=== PATIENT | female | born 1970 | race American Indian/Alaskan Native ===

== ENCOUNTER 2018-07-22 00:10 | Emergency (ER) | payer MEDICAID ==
[2018-07-22 09:29] VITALS: BP 140/76
--- NOTE | 2018-07-22 10:13 | Emergency Department Report ---
ED General Adult HPI - General Chief complaint: Arrhythmia/Palpitations Stated complaint: FAST HEART BEAT,HBP Time Seen by Provider: 07/22/18 10:05 Source: patient, RN notes reviewed Mode of arrival: Ambulatory Limitations: No Limitations - History of Present Illness Initial comments: This is a 47-year-old female who was not known to this provider previously. She endorses a past medical history of hypertension. She recently started taking HCTZ 25 mg daily 3 weeks ago. She presents to the ER with a complaint of intermittent sensation of rapid heartbeat over the past week. This is painless, and does not have exacerbating or relieving factors. She denies , denies oral contraceptive use, and denies DVT, pulmonary embolus risk factors. She reports getting enough sleep each night, and denies stimulant ingestion as well as caffeine ingestion. She denies headache, neck pain, chest pain, abdominal pain, shortness of breath. She makes no complaints of heaviness to her tongue to me. -: Gradual, week(s) (1) Severity scale (0 -10): 0 Consistency: intermittent Improves with: none Worsens with: none Associated Symptoms: denies other symptoms. denies: confusion, chest pain, cough, diaphoresis, fever/chills, headaches, loss of appetite, malaise, nausea/ vomiting, rash, seizure, shortness of breath, syncope, weakness - Related Data Allergies Allergy/AdvReac Type Severity Reaction Status Date / Time No Known Allergies Allergy Unverified 07/22/18 00:26 ED Review of Systems ROS: Stated complaint: FAST HEART BEAT,HBP Other details as noted in HPI Comment: All other systems reviewed and negative ED Past Medical Hx - Past Medical History Previous Medical History?: Yes Hx Hypertension: Yes - Surgical History Past Surgical History?: No - Social History Smoking Status: Never Smoker Substance Use Type: None ED Physical Exam - General Limitations: No Limitations General appearance: alert, in no apparent distress - Head Head exam: Present: atraumatic, normocephalic - Eye Eye exam: Present: normal appearance, PERRL, EOMI. Absent: nystagmus - ENT ENT exam: Present: normal exam, normal orophraynx, mucous membranes moist, normal external ear exam, other (the patient is speaking in full sentences. There is appropriate range of motion of the tongue. There is no tongue swelling. There is no stridor.) - Neck Neck exam: Present: normal inspection, full ROM. Absent: tenderness, meningismus - Respiratory Respiratory exam: Present: normal lung sounds bilaterally. Absent: respiratory distress - Cardiovascular Cardiovascular Exam: Present: regular rate, normal rhythm, normal heart sounds. Absent: bradycardia, tachycardia, irregular rhythm, systolic murmur, diastolic murmur, rubs, gallop - GI/Abdominal GI/Abdominal exam: Present: soft. Absent: distended, tenderness, guarding, rebound, rigid, pulsatile mass - Extremities Exam Extremities exam: Present: normal inspection, full ROM, normal capillary refill , other (2+ pulses noted in the bilateral upper, lower extremities. Compartments soft. No long bony tenderness. The pelvis is stable.). Absent: tenderness, pedal edema, joint swelling, calf tenderness - Back Exam Back exam: Present: normal inspection, full ROM. Absent: tenderness, CVA tenderness (R), paraspinal tenderness, vertebral tenderness - Neurological Exam Neurological exam: Present: alert, oriented X3, CN II-XII intact, normal gait, other (Extraocular movements intact. Tongue midline. No facial droop. Facial sensation intact to light touch in the V1, V2, V3 distribution bilaterally. 5 and 5 strength in 4 extremities.. Sensation is intact to light touch in 4 extremities.). Absent: motor sensory deficit - Psychiatric Psychiatric exam: Present: anxious - Skin Skin exam: Present: warm, dry, intact, normal color. Absent: rash ED Course Vital Signs 07/22/18 07/22/18 07/22/18 00:18 00:23 09:24 Temperature 98.6 F 98.6 F Pulse Rate 110 H 111 H 115 H Respiratory 18 16 Rate Blood Pressure 173/88 173/88 Blood Pressure [Right] O2 Sat by Pulse 99 99 99 Oximetry 07/22/18 09:28 Temperature 98.8 F Pulse Rate 75 Respiratory 18 Rate Blood Pressure Blood Pressure 140/76 [Right] O2 Sat by Pulse 100 Oximetry ED Medical Decision Making - Lab Data Result diagrams: 07/22/18 10:20 07/22/18 10:20 Vital Signs 07/22/18 07/22/18 07/22/18 00:18 00:23 09:24 Temperature 98.6 F 98.6 F Pulse Rate 110 H 111 H 115 H Respiratory 18 16 Rate Blood Pressure 173/88 173/88 Blood Pressure [Right] O2 Sat by Pulse 99 99 99 Oximetry 07/22/18 09:28 Temperature 98.8 F Pulse Rate 75 Respiratory 18 Rate Blood Pressure Blood Pressure 140/76 [Right] O2 Sat by Pulse 100 Oximetry Lab Results 07/22/18 07/22/18 07/22/18 Range/Units 10:20 10:20 10:28 WBC 3.8 L (4.5-11.0) K/mm3 RBC 4.57 (3.65-5.03) M/mm3 Hgb 11.3 (10.1-14.3) gm/dl Hct 35.5 (30.3-42.9) % MCV 78 L (79-97) fl MCH 25 L (28-32) pg MCHC 32 (30-34) % RDW 22.6 H (13.2-15.2) % Plt Count 270 (140-440) K/mm3 Sodium 137 (137-145) mmol/L Potassium 3.5 L (3.6-5.0) mmol/L Chloride 97.5 L (98-107) mmol/L Carbon Dioxide 29 (22-30) mmol/L Anion Gap 14 mmol/L BUN 8 (7-17) mg/dL Creatinine 0.8 (0.7-1.2) mg/dL Estimated GFR > 60 ml/min BUN/Creatinine Ratio 10 % Glucose 94 (65-100) mg/dL Calcium 8.8 (8.4-10.2) mg/dL Magnesium 2.00 (1.7-2.3) mg/dL TSH 1.090 (0.270-4.200) mlU/mL HCG, Quant (0-4) mIU/mL 07/22/18 Range/Units 10:28 WBC (4.5-11.0) K/mm3 RBC (3.65-5.03) M/mm3 Hgb (10.1-14.3) gm/dl Hct (30.3-42.9) % MCV (79-97) fl MCH (28-32) pg MCHC (30-34) % RDW (13.2-15.2) % Plt Count (140-440) K/mm3 Sodium (137-145) mmol/L Potassium (3.6-5.0) mmol/L Chloride (98-107) mmol/L Carbon Dioxide (22-30) mmol/L Anion Gap mmol/L BUN (7-17) mg/dL Creatinine (0.7-1.2) mg/dL Estimated GFR ml/min BUN/Creatinine Ratio % Glucose (65-100) mg/dL Calcium (8.4-10.2) mg/dL Magnesium (1.7-2.3) mg/dL TSH (0.270-4.200) mlU/mL HCG, Quant < 2 (0-4) mIU/mL - EKG Data -: EKG Interpreted by Me - EKG Data When compared to previous EKG there are: previous EKG unavailable 07/22/18 11:18 Sinus, 89 bpm, normal axis, normal intervals, borderline atrial enlargement, no prior for comparison, not a STEMI - Medical Decision Making Differential diagnosis, including but not limited to: Thyroid derangement, electrolyte derangement, intermittent paroxysmal tachycardia, anemia, anxiety Assessment and plan: 47-year-old female who endorses intermittent sensation of rapid heartbeat. She is initially tachycardic and hypertensive, and this improved on its own without intervention. Her physical exam is unremarkable, and her tongue exam is also unremarkable. Her laboratory studies were unremarkable for any emergent abnormality, incidental leukopenia is noted, and she can follow up with a primary care doctor for this. Based on the history and physical and the objective information, there does not appear to be an emergent medical condition at this time, the patient is medically suitable to follow up with outpatient primary care doctor. Critical care attestation.: If time is entered above; I have spent that time in minutes in the direct care of this critically ill patient, excluding procedure time. ED Disposition Clinical Impression: History of palpitations Disposition: DC-01 TO HOME OR SELFCARE Is pt being admited?: No Does the pt Need Aspirin: No Condition: Good Additional Instructions: Continue current outpatient medications. Follow up with her primary care doctor or director of alumni relations for sensation of rapid heart beat within the next 2-3 weeks. Avoid consumption of stimulants and caffeinated beverages. Return to the ER right away with new pain, worsened pain, migration of pain, projectile vomiting, change in mental status, confusion, inability to tolerate liquid feeds. Laboratory studies were essentially unremarkable with the exception of a minimally depressed white blood cell count, which is most likely not medically relevant. This should be followed up by her primary care doctor within the recommended timeframe. [facility]Other[facility] - 3-5 Days [facility] [Provider Group] - 3-5 Days [facility] [Provider Group] - 3-5 Days Forms: Work/School Release Form(ED)
[2018-07-22 10:42] LABS: Hematocrit 35.5 % (30.3-42.9); Hemoglobin 11.3 gm/dl (10.1-14.3); Mean Corpuscular HGB Conc 32 % (30-34); Mean Corpuscular Volume 78 fl (79-97); Platelet Count 270 K/mm3 (140-440); Red Blood Count 4.57 M/mm3 (3.65-5.03)
[2018-07-22 10:47] LABS: Mean Corpuscular Hemoglobin 25 pg (28-32); Red Cell Distribution Width 22.6 % (13.2-15.2)
[2018-07-22 11:00] LABS: BUN/Creatinine Ratio 10; Blood Urea Nitrogen 8 mg/dL (7-17); Calcium 8.8 mg/dL (8.4-10.2); Hemolysis Index 4
== END 2018-07-22 11:39 | disposition home or self-care (01) ==
LOC: ED 00:10
DX: R00.2 Palpitations (principal); I10 Essential (primary) hypertension
CPT/HCPCS: 36415; 80048; 83735; 84443; 84702; 85027; 93005; 93010

== ENCOUNTER 2019-08-17 03:47 | Inpatient (IN) | payer MEDICAID ==
[2019-08-17] MEDS ORDERED: ACETAMINOPHEN 500 MG TAB PO STA (03:54)
[2019-08-17] MEDS ORDERED: SODIUM CHLORIDE 0.9% 500 ML 500 ML IV ONE (03:54)
[2019-08-17 04:31] LABS: INR 0.99 (0.87-1.13)
[2019-08-17 04:38] LABS: Albumin 3.7 g/dL (3.9-5); Calcium 7.7 mg/dL (8.4-10.2)
--- NOTE | 2019-08-17 04:43 | XRay Report ---
CHEST 1 VIEW INDICATION / CLINICAL INFORMATION: possible Sepsis. COMPARISON: None available. FINDINGS: SUPPORT DEVICES: None. HEART / MEDIASTINUM: No significant abnormality. LUNGS / PLEURA: No significant pulmonary or pleural abnormality. No pneumothorax. ADDITIONAL FINDINGS: No significant additional findings. IMPRESSION: 1. No acute findings. Signer Name: Adelaida Sánchez MD Signed: 08/17/2019 4:38 AM Workstation Name: [id number] [id number]
[2019-08-17 05:13] LABS: Hematocrit 34.4 % (30.3-42.9); Hemoglobin 11.1 gm/dl (10.1-14.3); Mean Corpuscular HGB Conc 32 % (30-34); Mean Corpuscular Volume 68 fl (79-97); Red Blood Count 5.05 M/mm3 (3.65-5.03); Red Cell Distribution Width 22.1 % (13.2-15.2)
[2019-08-17 05:14] LABS: Platelet Count 84 K/mm3 (140-440)
[2019-08-17 05:43] LABS: Eosinophils % (Manual) 0 % (0.0-4.3); Total Cells Counted 100
[2019-08-17 05:44] LABS: Anisocytosis 1+; Hypochromasia 2+; Platelet Estimate Consistent w Auto
[2019-08-17] MEDS ORDERED: POTASSIUM CHLORIDE ER 20 MEQ TAB PO ONE (06:09)
[2019-08-17] MEDS ORDERED: SODIUM CHLORIDE 0.9% 1000 ML 1,000 ML IV ONE ×2 (06:19→09:30)
--- NOTE | 2019-08-17 06:20 | Emergency Department Report ---
ED General Adult HPI - General Chief complaint: Nausea/Vomiting/Diarrhea Stated complaint: FATIGUE, TIREDNESS, DIARRHEA,VUFFS, CHILLS Time Seen by Provider: 08/17/19 06:08 Source: patient, RN notes reviewed Mode of arrival: Ambulatory Limitations: No Limitations - History of Present Illness Initial comments: During the history and physical, I am chaperoned by supervisor vendor quality Maximilian Whalen This is a pleasant 48-year-old female. I evaluated this patient in the past. She reports that she typically goes to the [facility] Patient recently got back from [place] from a vacation. She presents to the ER with a complaint of body aches, nausea, vomiting and diarrhea. Symptoms present for the past 24 hours. Symptoms are improved with IV fluids, Tylenol, and antiemetic medication. She denies irritative, obstructive urinary symptoms. No sick contacts that she is aware of. She does not believe that she consumed raw or undercooked food, but is not sure.. -: Gradual Severity scale (0 -10): 0 Consistency: intermittent Improves with: medication, rest Worsens with: eating - Related Data Allergies Allergy/AdvReac Type Severity Reaction Status Date / Time No Known Allergies Allergy Unverified 07/22/18 00:26 ED Review of Systems ROS: Stated complaint: FATIGUE, TIREDNESS, DIARRHEA,VUFFS, CHILLS Other details as noted in HPI Constitutional: fever Eyes: denies: vision change ENT: denies: congestion Respiratory: denies: wheezing Cardiovascular: denies: syncope Gastrointestinal: nausea, vomiting, diarrhea. denies: abdominal pain Genitourinary: denies: urgency Musculoskeletal: arthralgia, myalgia Skin: denies: lesions Neurological: weakness ED Past Medical Hx - Past Medical History Previous Medical History?: Yes Hx Hypertension: Yes - Surgical History Past Surgical History?: No - Social History Smoking Status: Never Smoker Substance Use Type: None ED Physical Exam - General Limitations: No Limitations General appearance: alert, in no apparent distress - Head Head exam: Present: atraumatic, normocephalic - Eye Eye exam: Present: normal appearance, EOMI. Absent: nystagmus - ENT ENT exam: Present: normal exam, normal orophraynx, mucous membranes moist, norm al external ear exam - Neck Neck exam: Present: normal inspection, full ROM. Absent: tenderness, meningismus - Respiratory Respiratory exam: Present: normal lung sounds bilaterally. Absent: respiratory distress - Cardiovascular Cardiovascular Exam: Present: normal rhythm, tachycardia, normal heart sounds. Absent: systolic murmur, diastolic murmur, rubs, gallop - GI/Abdominal GI/Abdominal exam: Present: soft. Absent: distended, tenderness, guarding, rebound, rigid, pulsatile mass - Extremities Exam Extremities exam: Present: normal inspection, full ROM, other (2+ pulses noted in the bilateral upper, lower extremities. Compartments soft. No long bony tenderness. The pelvis is stable.). Absent: pedal edema, joint swelling, calf tenderness - Back Exam Back exam: Present: normal inspection, full ROM. Absent: tenderness, CVA tenderness (R), CVA tenderness (L), paraspinal tenderness, vertebral tenderness - Neurological Exam Neurological exam: Present: alert, other (Extraocular movements intact. Tongue midline. No facial droop. Facial sensation intact to light touch in the V1, V2, V3 distribution bilaterally. 5 and 5 strength in 4 extremities.. Sensation is intact to light touch in 4 extremities.). Absent: motor sensory deficit - Psychiatric Psychiatric exam: Present: normal affect, normal mood - Skin Skin exam: Present: warm, dry, intact, normal color. Absent: rash ED Course Vital Signs 08/17/19 08/17/19 08/17/19 03:49 04:13 04:28 Temperature 103.1 F H 100.2 F H Pulse Rate 108 H 100 H Respiratory 18 21 Rate Blood Pressure 120/68 Blood Pressure 117/68 [Left] O2 Sat by Pulse 98 99 98 Oximetry 08/17/19 08/17/19 08/17/19 04:31 05:00 05:30 Temperature Pulse Rate 103 H 96 H 96 H Respiratory 18 19 22 Rate Blood Pressure 117/68 107/53 108/52 Blood Pressure [Left] O2 Sat by Pulse 99 100 97 Oximetry 08/17/19 08/17/19 08/17/19 05:52 06:00 06:39 Temperature 100.1 F H Pulse Rate 95 H Respiratory 18 16 Rate Blood Pressure 129/49 129/49 Blood Pressure [Left] O2 Sat by Pulse 100 Oximetry 08/17/19 08/17/19 08/17/19 07:01 07:04 07:11 Temperature 98.8 F Pulse Rate 88 91 H Respiratory 15 15 Rate Blood Pressure 109/64 109/64 Blood Pressure [Left] O2 Sat by Pulse Oximetry 08/17/19 08/17/19 08/17/19 07:21 07:30 07:40 Temperature Pulse Rate 99 H 94 H 95 H Respiratory 22 19 15 Rate Blood Pressure 129/49 104/64 104/64 Blood Pressure [Left] O2 Sat by Pulse Oximetry 08/17/19 08/17/19 08/17/19 07:58 08:00 08:08 Temperature Pulse Rate 90 Respiratory 16 Rate Blood Pressure 100/74 110/73 Blood Pressure 110/73 [Left] O2 Sat by Pulse 96 99 100 Oximetry 08/17/19 08/17/19 08/17/19 08:11 08:21 08:31 Temperature Pulse Rate Respiratory Rate Blood Pressure 110/73 110/73 110/73 Blood Pressure [Left] O2 Sat by Pulse 97 98 97 Oximetry 08/17/19 08:41 Temperature Pulse Rate Respiratory Rate Blood Pressure 110/73 Blood Pressure [Left] O2 Sat by Pulse 100 Oximetry ED Medical Decision Making - Lab Data Result diagrams: 08/18/19 05:10 08/18/19 05:10 Vital Signs 08/17/19 08/17/19 08/17/19 03:49 04:13 04:28 Temperature 103.1 F H 100.2 F H Pulse Rate 108 H 100 H Respiratory 18 21 Rate Blood Pressure 120/68 Blood Pressure 117/68 [Left] O2 Sat by Pulse 98 99 98 Oximetry 08/17/19 08/17/19 08/17/19 04:31 05:00 05:30 Temperature Pulse Rate 103 H 96 H 96 H Respiratory 18 19 22 Rate Blood Pressure 117/68 107/53 108/52 Blood Pressure [Left] O2 Sat by Pulse 99 100 97 Oximetry 08/17/19 05:52 Temperature 100.1 F H Pulse Rate Respiratory Rate Blood Pressure Blood Pressure [Left] O2 Sat by Pulse Oximetry Lab Results 08/17/19 08/17/19 08/17/19 Range/Units 03:57 03:57 03:57 WBC 2.1 L (4.5-11.0) K/mm3 RBC 5.05 H (3.65-5.03) M/mm3 Hgb 11.1 (10.1-14.3) gm/dl Hct 34.4 (30.3-42.9) % MCV 68 L (79-97) fl MCH 22 L (28-32) pg MCHC 32 (30-34) % RDW 22.1 H (13.2-15.2) % Plt Count 84 L (140-440) K/mm3 Lymph % (Auto) Floor Tiling Professional Bremer % (Auto) Floor Tiling Professional Eos % (Auto) Floor Tiling Professional Baso % (Auto) Floor Tiling Professional Lymph # Floor Tiling Professional Bremer # Floor Tiling Professional Eos # Floor Tiling Professional Baso # Floor Tiling Professional Add Manual Diff Complete Total Counted 100 Seg Neutrophils % Floor Tiling Professional Seg Neuts % (Manual) 63.0 (40.0-70.0) % Band Neutrophils % 1.0 % Lymphocytes % (Manual) 30.0 (13.4-35.0) % Reactive Lymphs % (Man) 3.0 % Monocytes % (Manual) 2.0 (0.0-7.3) % Eosinophils % (Manual) 0 (0.0-4.3) % Basophils % (Manual) 1.0 (0.0-1.8) % Metamyelocytes % 0 % Myelocytes % 0 % Promyelocytes % 0 % Blast Cells % 0 % Nucleated RBC % Not Reportable Seg Neutrophils # Floor Tiling Professional Seg Neutrophils # Man 1.3 L (1.8-7.7) K/mm3 Band Neutrophils # 0.0 K/mm3 Lymphocytes # (Manual) 0.6 L (1.2-5.4) K/mm3 Abs React Lymphs (Man) 0.1 K/mm3 Monocytes # (Manual) 0.0 (0.0-0.8) K/mm3 Eosinophils # (Manual) 0.0 (0.0-0.4) K/mm3 Basophils # (Manual) 0.0 (0.0-0.1) K/mm3 Metamyelocytes # 0.0 K/mm3 Myelocytes # 0.0 K/mm3 Promyelocytes # 0.0 K/mm3 Blast Cells # 0.0 K/mm3 WBC Morphology Not Reportable Hypersegmented Neuts Not Reportable Hyposegmented Neuts Not Reportable Hypogranular Neuts Not Reportable Smudge Cells Not Reportable Toxic Granulation Not Reportable Toxic Vacuolation Not Reportable Dohle Bodies Not Reportable Pelger-Huet Anomaly Not Reportable Julia Rods Not Reportable Platelet Estimate Consistent w auto Clumped Platelets Not Reportable Plt Clumps, EDTA Not Reportable Large Platelets Not Reportable Giant Platelets Not Reportable Platelet Satelliting Not Reportable Plt Morphology Comment Not Reportable RBC Morphology Not Reportable Dimorphic RBCs Not Reportable Polychromasia Not Reportable Hypochromasia 2+ Poikilocytosis Not Reportable Anisocytosis 1+ Microcytosis 1+ Macrocytosis Not Reportable Spherocytes Not Reportable Pappenheimer Bodies Not Reportable Sickle Cells Not Reportable Target Cells Not Reportable Tear Drop Cells Not Reportable Ovalocytes Not Reportable Helmet Cells Not Reportable Rodriguez-[place] Bodies Not Reportable Freeman Rings Not Reportable Lafe Cells Not Reportable Bite Cells Not Reportable Crenated Cell Not Reportable Elliptocytes Not Reportable Acanthocytes (Spur) Not Reportable Rouleaux Not Reportable Hemoglobin C Crystals Not Reportable Schistocytes Not Reportable Malaria parasites Not Reportable Morro Bodies Not Reportable Hem Pathologist Commnt No PT 12.8 (12.2-14.9) Sec. INR 0.99 (0.87-1.13) VBG pH (7.320-7.420) Sodium 133 L (137-145) mmol/L Potassium 3.3 L (3.6-5.0) mmol/L Chloride 93.0 L (98-107) mmol/L Carbon Dioxide 27 (22-30) mmol/L Anion Gap 16 mmol/L BUN 11 (7-17) mg/dL Creatinine 1.2 (0.7-1.2) mg/dL Estimated GFR 58 ml/min BUN/Creatinine Ratio 9 % Glucose 146 H (65-100) mg/dL Lactic Acid (0.7-2.0) mmol/L Calcium 7.7 L (8.4-10.2) mg/dL Total Bilirubin 0.40 (0.1-1.2) mg/dL AST 95 H (5-40) units/L ALT 47 (7-56) units/L Alkaline Phosphatase 41 (35-129) units/L Total Protein 7.7 (6.3-8.2) g/dL Albumin 3.7 L (3.9-5) g/dL Albumin/Globulin Ratio 0.9 % Influenza A (Rapid) (Negative) Influenza B (Rapid) (Negative) 08/17/19 08/17/19 08/17/19 Range/Units 03:57 03:57 05:00 WBC (4.5-11.0) K/mm3 RBC (3.65-5.03) M/mm3 Hgb (10.1-14.3) gm/dl Hct (30.3-42.9) % MCV (79-97) fl MCH (28-32) pg MCHC (30-34) % RDW (13.2-15.2) % Plt Count (140-440) K/mm3 Lymph % (Auto) Bremer % (Auto) Eos % (Auto) Baso % (Auto) Lymph # Bremer # Eos # Baso # Add Manual Diff Total Counted Seg Neutrophils % Seg Neuts % (Manual) (40.0-70.0) % Band Neutrophils % % Lymphocytes % (Manual) (13.4-35.0) % Reactive Lymphs % (Man) % Monocytes % (Manual) (0.0-7.3) % Eosinophils % (Manual) (0.0-4.3) % Basophils % (Manual) (0.0-1.8) % Metamyelocytes % % Myelocytes % % Promyelocytes % % Blast Cells % % Nucleated RBC % Seg Neutrophils # Seg Neutrophils # Man (1.8-7.7) K/mm3 Band Neutrophils # K/mm3 Lymphocytes # (Manual) (1.2-5.4) K/mm3 Abs React Lymphs (Man) K/mm3 Monocytes # (Manual) (0.0-0.8) K/mm3 Eosinophils # (Manual) (0.0-0.4) K/mm3 Basophils # (Manual) (0.0-0.1) K/mm3 Metamyelocytes # K/mm3 Myelocytes # K/mm3 Promyelocytes # K/mm3 Blast Cells # K/mm3 WBC Morphology Hypersegmented Neuts Hyposegmented Neuts Hypogranular Neuts Smudge Cells Toxic Granulation Toxic Vacuolation Dohle Bodies Pelger-Huet Anomaly Julia Rods Platelet Estimate Clumped Platelets Plt Clumps, EDTA Large Platelets Giant Platelets Platelet Satelliting Plt Morphology Comment RBC Morphology Dimorphic RBCs Polychromasia Hypochromasia Poikilocytosis Anisocytosis Microcytosis Macrocytosis Spherocytes Pappenheimer Bodies Sickle Cells Target Cells Tear Drop Cells Ovalocytes Helmet Cells Rodriguez-[place] Bodies Freeman Rings Lafe Cells Bite Cells Crenated Cell Elliptocytes Acanthocytes (Spur) Rouleaux Hemoglobin C Crystals Schistocytes Malaria parasites Morro Bodies Hem Pathologist Commnt PT (12.2-14.9) Sec. INR (0.87-1.13) VBG pH 7.405 (7.320-7.420) Sodium (137-145) mmol/L Potassium (3.6-5.0) mmol/L Chloride (98-107) mmol/L Carbon Dioxide (22-30) mmol/L Anion Gap mmol/L BUN (7-17) mg/dL Creatinine (0.7-1.2) mg/dL Estimated GFR ml/min BUN/Creatinine Ratio % Glucose (65-100) mg/dL Lactic Acid 1.50 (0.7-2.0) mmol/L Calcium (8.4-10.2) mg/dL Total Bilirubin (0.1-1.2) mg/dL AST (5-40) units/L ALT (7-56) units/L Alkaline Phosphatase (35-129) units/L Total Protein (6.3-8.2) g/dL Albumin (3.9-5) g/dL Albumin/Globulin Ratio % Influenza A (Rapid) Negative (Negative) Influenza B (Rapid) Negative (Negative) - EKG Data -: EKG Interpreted by Md EKG shows normal: sinus rhythm Rate: normal - EKG Data 08/17/19 07:56 The EKG shows a sinus rhythm, 47 bpm, normal axis, QTC is within normal limits, there is poor R-wave progression, there is no endorsement of chest pain, the EKG is abnormal, the EKG is not consistent with ST elevation myocardial infarction. - Radiology Data Radiology results: report reviewed, image reviewed Print Report Referring Physician: ED DOC Patient Name: DOROTHEA GARCIA Date of : 1970 Sex: Female Report Date: 2019-08-17 Report Status: Finalized Findings [facility] [address] [place] [address] XRay Report Signed Patient: DOROTHEA GARCIA MR#: [id number] : 1970 Acct:[id number] Age/Sex: 48 / F ADM Date: 08/17/19 Loc: ED Attending Dr: Ordering Physician: ED MD VERITO Date of Service: 08/17/19 Procedure(s): XR chest 1V ap Accession Number(s): [id number] cc: ED DOCMD Fluoro Time In Minutes: CHEST 1 VIEW INDICATION / CLINICAL INFORMATION: possible Sepsis. COMPARISON: None available. FINDINGS: SUPPORT DEVICES: None. HEART / MEDIASTINUM: No significant abnormality. LUNGS / PLEURA: No significant pulmonary or pleural abnormality. No pneumothorax. ADDITIONAL FINDINGS: No significant additional findings. IMPRESSION: 1. No acute findings. Signer Name: Adelaida Sánchez MD Signed: 08/17/2019 4:38 AM Workstation Name: [id number] Transcribed By: [facility] Dictated By: Adelaida Sánchez MD Electronically Authenticated By: Adelaida Sánchez MD Signed Date/Time: 08/17/19 0438 - Medical Decision Making Differential diagnosis, including but not limited to: Viral syndrome, bacteremia, viremia, traveler's diarrhea, dehydration Assessment and plan: 48-year-old female with systemic inflammatory response syndrome, manifested by leukopenia, (this is chronic), tachycardia, and fever. The patient is quite well-appearing, does not appear to be in any acute distress. Her abdomen is soft and benign. She is found to have rhabdomyolysis, and systemic inflammatory response syndrome. We've recommended admission to the medical service for supportive care, and IV fluids. Discussed this with the patient, who verbalizes understanding, and is amenable to this plan of care. Hypokalemia is addressed. Azithromycin ordered. IV fluids ordered. Hospital physician, Dr. Seble Michele to admit Critical care attestation.: If time is entered above; I have spent that time in minutes in the direct care of this critically ill patient, excluding procedure time. ED Disposition Clinical Impression: Rhabdomyolysis, Acute febrile illness, SIRS (systemic inflammatory response syndrome) Disposition: OP ADMIT IP TO THIS HOSP Is pt being admited?: Yes Condition: Stable
[2019-08-17 07:04] LABS: HCG Qualitative,Urine Negative (Negative)
[2019-08-17 07:06] LABS: Bacteria,Urine 1+ /HPF (Negative); Bilirubin,Urine NEG (Negative); Blood,Urine NEG (Negative); Color,Urine Yellow (Yellow); Protein,Urine <15 mg/dL mg/dL (Negative); Urobilinogen,Urine < 2.0 mg/dL (<2.0)
[2019-08-17] MEDS ORDERED: SODIUM CHLORIDE 0.9% 1000 ML 2,000 ML IV ONE (07:43)
[2019-08-17] MEDS ORDERED: AZITHROMYCIN 250 MG TAB PO ONE (07:49)
[2019-08-17] MEDS ORDERED: ALBUTEROL 2.5 MG/3 ML NEBU IH PRN (07:53)
[2019-08-17] MEDS ORDERED: ACETAMINOPHEN 325 MG TAB PO PRN (07:53)
[2019-08-17] MEDS ORDERED: ONDANSETRON 4 MG/2 ML INJ IV PRN (07:53)
--- NOTE | 2019-08-17 07:59 | History and Physical Report ---
History of Present Illness Date of examination: 08/17/19 Date of admission: 08/17/19 Chief complaint: Diarrhea and Generalized weakness With Fever. History of present illness: Patient is a 48 Year old female with pmh of Hypternsion, Leukopenia who presents to the Ed with complaints of Body aches, nausea, vomiting and diarrhea. Per patient the Diarrhe has been persistent with > 5 times daily, she reports that this started 3 days into her Trip to [facility], no other fellow travelers where affected but she was quick to add that they are accustomed to [place]. She de nies irritative, Abdominal pain, obstructive urinary symptoms. No sick contacts that she is aware of. She does not believe that she consumed raw or undercooked food, but is not sure * She is found to have rhabdomyolysis, and systemic inflammatory response syndrome And Tachycardia. * She received 2.5 Liters of fluid in the ED Past History Past Medical History: hypertension. denies: COPD, diabetes, HIV/AIDS, hyperlipidemia Past Surgical History: denies: No surgical history Social history: lives with family, full code. denies: smoking, alcohol abuse, prescription drug abuse, IV drug use, AND/DNR-allow natural Family history: no significant family history Medications and Allergies Allergies Allergy/AdvReac Type Severity Reaction Status Date / Time No Known Allergies Allergy Unverified 07/22/18 00:26 Active Meds: Active Medications Acetaminophen (Tylenol) 650 mg PO Q4H PRN PRN Reason: Pain MILD(1-3)/Fever >100.5/PECK Albuterol (Proventil) 2.5 mg IH Q3HRT PRN PRN Reason: Shortness Of Breath Enoxaparin Sodium (Lovenox) 30 mg SUB-Q QDAY SAVITA Sodium Chloride (Nacl 0.9% 1000 Ml) 1,000 mls @ 150 mls/hr IV DIRECT SAVITA Ondansetron HCl (Zofran) 4 mg IV Q8H PRN PRN Reason: Nausea And Vomiting Sodium Chloride (Sodium Chloride Flush Syringe 10 Ml) 10 ml IV BID SAVITA Sodium Chloride (Sodium Chloride Flush Syringe 10 Ml) 10 ml IV PRN PRN PRN Reason: LINE FLUSH Review of Systems Constitutional: fever, chills, fatigue, weakness, lethargy, no sweats, no night sweats, no malaise Cardiovascular: lightheadedness, no chest pain, no orthopnea, no palpitations, no syncope, no shortness of breath, no dyspnea on exertion, no paroxysmal nocturnal dyspnea, no claudication Respiratory: cough, no cough with sputum, no excessive sputum, no hemoptysis, no shortness of breath, no dyspnea on exertion, no congestion, no wheezing, no pleurisy, no pain Gastrointestinal: no abdominal pain, no nausea, no diarrhea, no constipation, no change in bowel habits, no melena, no hematochezia, no heartburn, no indigestion, no dyspepsia/bloating Genitourinary Female: no urgency, no stress incontinence, no post void dribbling, no incomplete emptying, no urge incontinence, no abnormal vaginal bleeding, no genital sores, no hot flashes, no prolapse symptoms Integumentary: no deferred, no pruritis, no sores, no bullae, no darkening of skin, no depigmentation, no acne, no brittle nails, no striae Neurological: no transient paralysis, no weakness, no parathesias, no numbness, no tingling, no seizures, no headaches, no convulsions, no aphasia, no change in speech, no change in mentation, no motor disturbance, no sensory deficit, no loss of vision, no hearing difficulties Psychiatric: no anxiety, no change in sleep habits, no insomnia, no hypersomnia, no depression, no hopelessness, no anhedonia, no difficulties concentrating, no confusion Endocrine: no heat intolerance, no excessive thirst, no polyuria, no nocturia, no weight change, no proptosis, no deepening of the voice, no palpatations, no low blood sugars Hematologic/Lymphatic: no lymphadenopathy, no lymphedema, no thrombophilia Allergic/Immunologic: no urticaria, no wheezing, no gluten intolerance Exam - Constitutional Vitals: Temp Pulse Resp BP Pulse Ox 98.8 F 95 H 16 129/49 100 08/17/19 07:04 08/17/19 06:39 08/17/19 06:39 08/17/19 06:39 08/17/19 06:00 General appearance: Present: mild distress - EENT Eyes: Present: PERRL, EOM intact ENT: hearing intact, clear oral mucosa, dentition normal - Neck Neck: Present: supple, normal ROM - Respiratory Respiratory effort: normal Respiratory: bilateral: CTA - Cardiovascular Rhythm: regular Heart Sounds: Present: S1 & S2. Absent: systolic murmur, diastolic murmur - Extremities Extremities: no ischemia, pulses intact, pulses symmetrical, No edema, normal temperature, normal color, Full ROM Peripheral Pulses: within normal limits - Abdominal General gastrointestinal: Present: soft, non-tender, non-distended, normal bowel sounds - Integumentary Integumentary: Present: clear, warm, dry, normal turgor. Absent: erythema, jaundice, rash, clammy, pale, decreased turgor - Musculoskeletal Musculoskeletal: strength equal bilaterally - Psychiatric Psychiatric: appropriate mood/affect, intact judgment & insight, memory intact, cooperative - Neurologic Neurologic: CNII-XII intact, moves all extremities - Allied Health Allied health notes reviewed: nursing Results - Labs CBC & Chem 7: 08/17/19 03:57 08/17/19 03:57 Labs: Laboratory Last Values WBC 2.1 K/mm3 (4.5-11.0) L 08/17/19 03:57 RBC 5.05 M/mm3 (3.65-5.03) H 08/17/19 03:57 Hgb 11.1 gm/dl (10.1-14.3) 08/17/19 03:57 Hct 34.4 % (30.3-42.9) 08/17/19 03:57 MCV 68 fl (79-97) L 08/17/19 03:57 MCH 22 pg (28-32) L 08/17/19 03:57 MCHC 32 % (30-34) 08/17/19 03:57 RDW 22.1 % (13.2-15.2) H 08/17/19 03:57 Plt Count 84 K/mm3 (140-440) L 08/17/19 03:57 Lymph % (Auto) Safety Professional 08/17/19 03:57 [place] % (Auto) Safety Professional 08/17/19 03:57 Eos % (Auto) Safety Professional 08/17/19 03:57 Baso % (Auto) Safety Professional 08/17/19 03:57 Lymph # Safety Professional 08/17/19 03:57 [place] # Safety Professional 08/17/19 03:57 Eos # Safety Professional 08/17/19 03:57 Baso # Safety Professional 08/17/19 03:57 Add Manual Diff Complete 08/17/19 03:57 Total Counted 100 08/17/19 03:57 Seg Neutrophils % Safety Professional 08/17/19 03:57 Seg Neuts % (Manual) 63.0 % (40.0-70.0) 08/17/19 03:57 Band Neutrophils % 1.0 % 08/17/19 03:57 Lymphocytes % (Manual) 30.0 % (13.4-35.0) 08/17/19 03:57 Reactive Lymphs % (Man) 3.0 % 08/17/19 03:57 Monocytes % (Manual) 2.0 % (0.0-7.3) 08/17/19 03:57 Eosinophils % (Manual) 0 % (0.0-4.3) 08/17/19 03:57 Basophils % (Manual) 1.0 % (0.0-1.8) 08/17/19 03:57 Metamyelocytes % 0 % 08/17/19 03:57 Myelocytes % 0 % 08/17/19 03:57 Promyelocytes % 0 % 08/17/19 03:57 Blast Cells % 0 % 08/17/19 03:57 Nucleated RBC % Not Reportable 08/17/19 03:57 Seg Neutrophils # Safety Professional 08/17/19 03:57 Seg Neutrophils # Man 1.3 K/mm3 (1.8-7.7) L 08/17/19 03:57 Band Neutrophils # 0.0 K/mm3 08/17/19 03:57 Lymphocytes # (Manual) 0.6 K/mm3 (1.2-5.4) L 08/17/19 03:57 Abs React Lymphs (Man) 0.1 K/mm3 08/17/19 03:57 Monocytes # (Manual) 0.0 K/mm3 (0.0-0.8) 08/17/19 03:57 Eosinophils # (Manual) 0.0 K/mm3 (0.0-0.4) 08/17/19 03:57 Basophils # (Manual) 0.0 K/mm3 (0.0-0.1) 08/17/19 03:57 Metamyelocytes # 0.0 K/mm3 08/17/19 03:57 Myelocytes # 0.0 K/mm3 08/17/19 03:57 Promyelocytes # 0.0 K/mm3 08/17/19 03:57 Blast Cells # 0.0 K/mm3 08/17/19 03:57 WBC Morphology Not Reportable 08/17/19 03:57 Hypersegmented Neuts Not Reportable 08/17/19 03:57 Hyposegmented Neuts Not Reportable 08/17/19 03:57 Hypogranular Neuts Not Reportable 08/17/19 03:57 Smudge Cells Not Reportable 08/17/19 03:57 Toxic Granulation Not Reportable 08/17/19 03:57 Toxic Vacuolation Not Reportable 08/17/19 03:57 Dohle Bodies Not Reportable 08/17/19 03:57 Pelger-Huet Anomaly Not Reportable 08/17/19 03:57 Julia Rods Not Reportable 08/17/19 03:57 Platelet Estimate Consistent w auto 08/17/19 03:57 Clumped Platelets Not Reportable 08/17/19 03:57 Plt Clumps, EDTA Not Reportable 08/17/19 03:57 Large Platelets Not Reportable 08/17/19 03:57 Giant Platelets Not Reportable 08/17/19 03:57 Platelet Satelliting Not Reportable 08/17/19 03:57 Plt Morphology Comment Not Reportable 08/17/19 03:57 RBC Morphology Not Reportable 08/17/19 03:57 Dimorphic RBCs Not Reportable 08/17/19 03:57 Polychromasia Not Reportable 08/17/19 03:57 Hypochromasia 2+ 08/17/19 03:57 Poikilocytosis Not Reportable 08/17/19 03:57 Anisocytosis 1+ 08/17/19 03:57 Microcytosis 1+ 08/17/19 03:57 Macrocytosis Not Reportable 08/17/19 03:57 Spherocytes Not Reportable 08/17/19 03:57 Pappenheimer Bodies Not Reportable 08/17/19 03:57 Sickle Cells Not Reportable 08/17/19 03:57 Target Cells Not Reportable 08/17/19 03:57 Tear Drop Cells Not Reportable 08/17/19 03:57 Ovalocytes Not Reportable 08/17/19 03:57 Helmet Cells Not Reportable 08/17/19 03:57 [place] Bodies Not Reportable 08/17/19 03:57 [place] Rings Not Reportable 08/17/19 03:57 Embarrass Cells Not Reportable 08/17/19 03:57 Bite Cells Not Reportable 08/17/19 03:57 Crenated Cell Not Reportable 08/17/19 03:57 Elliptocytes Not Reportable 08/17/19 03:57 Acanthocytes (Spur) Not Reportable 08/17/19 03:57 Rouleaux Not Reportable 08/17/19 03:57 Hemoglobin C Crystals Not Reportable 08/17/19 03:57 Schistocytes Not Reportable 08/17/19 03:57 Malaria parasites Not Reportable 08/17/19 03:57 Morro Bodies Not Reportable 08/17/19 03:57 Hem Pathologist Commnt No 08/17/19 03:57 PT 12.8 Sec. (12.2-14.9) 08/17/19 03:57 INR 0.99 (0.87-1.13) 08/17/19 03:57 VBG pH 7.405 (7.320-7.420) 08/17/19 03:57 Sodium 133 mmol/L (137-145) L 08/17/19 03:57 Potassium 3.3 mmol/L (3.6-5.0) L 08/17/19 03:57 Chloride 93.0 mmol/L (98-107) L 08/17/19 03:57 Carbon Dioxide 27 mmol/L (22-30) 08/17/19 03:57 Anion Gap 16 mmol/L 08/17/19 03:57 BUN 11 mg/dL (7-17) 08/17/19 03:57 Creatinine 1.2 mg/dL (0.7-1.2) 08/17/19 03:57 Estimated GFR 58 ml/min 08/17/19 03:57 BUN/Creatinine Ratio 9 % 08/17/19 03:57 Glucose 146 mg/dL (65-100) H 08/17/19 03:57 Lactic Acid 1.00 mmol/L (0.7-2.0) 08/17/19 06:21 Calcium 7.7 mg/dL (8.4-10.2) L 08/17/19 03:57 Magnesium 1.70 mg/dL (1.7-2.3) 08/17/19 03:57 Total Bilirubin 0.40 mg/dL (0.1-1.2) 08/17/19 03:57 AST 95 units/L (5-40) H 08/17/19 03:57 ALT 47 units/L (7-56) 08/17/19 03:57 Alkaline Phosphatase 41 units/L (35-129) 08/17/19 03:57 Total Creatine Kinase 4050 units/L (30-135) H 08/17/19 03:57 Total Protein 7.7 g/dL (6.3-8.2) 08/17/19 03:57 Albumin 3.7 g/dL (3.9-5) L 08/17/19 03:57 Albumin/Globulin Ratio 0.9 % 08/17/19 03:57 Urine Bilirubin Neg (Negative) 08/17/19 06:30 Urine RBC (Auto) 3.0 /HPF (0.0-6.0) 08/17/19 06:30 U Epithel Cells (Auto) 1.0 /HPF (0-13.0) 08/17/19 06:30 Urine HCG, Qual Negative (Negative) 08/17/19 06:30 Influenza A (Rapid) Negative (Negative) 08/17/19 05:00 Influenza B (Rapid) Negative (Negative) 08/17/19 05:00 Assessment and Plan Assessment and plan: Patient is a 48 Year old female with pmh of Hypternsion, Leukopenia who presents to the Ed with complaints of Body aches, nausea, vomiting and diarrhea. Per patient the Diarrhe has been persistent with > 5 times daily, she reports that this started 3 days into her Trip to [facility], no other fellow travelers where affected but she was quick to add that they are accustomed to [place]. She denies irritative, Abdominal pain, obstructive urinary symptoms. No sick contacts that she is aware of. She does not believe that she consumed raw or undercooked food, but is not sure * She is found to have rhabdomyolysis, and systemic inflammatory response syndrome And Tachycardia. * She received 2.5 Liters of fluid in the ED Acute Diarrhea SIRS r/o Sepsis Acute Rhabdomyolysis Tachycardia HTN Thrombocytopenia Leukopenia Plan Admit to [facility] ID consult due to concern for Travelaer diarrhea, DIC among others R/o C.DIFF, Keep on Isolation till done Stool studies. Continue fluid resuscitation Follow CK levels No further antibiotics till seen by ID, patient already recieved Abx in the ED Obtain DIC work up Hold anti hypertensive, Lisinopril/HCTZ 20-25mg for now. DVT/GI prophy Plan of care discussed with the patient in detail. Advance Directives: Yes Plan of care discussed with patient/family: Yes
[2019-08-17 08:51] LABS: Hematocrit 29.1 % (30.3-42.9); Hemoglobin 9.2 gm/dl (10.1-14.3); Mean Corpuscular HGB Conc 32 % (30-34); Red Blood Count 4.21 M/mm3 (3.65-5.03)
[2019-08-17 09:16] LABS: Mean Corpuscular Volume 69 fl (79-97); Platelet Count 65 K/mm3 (140-440); Red Cell Distribution Width 22.6 % (13.2-15.2)
[2019-08-17 09:26] LABS: Partial Thromboplastin Time 34.4 Sec. (24.2-36.6)
[2019-08-17 09:27] LABS: INR 1.14 (0.87-1.13)
[2019-08-17] MEDS ORDERED: ENOXAPARIN 30 MG/0.3 ML INJ SUB-Q SCH (10:00)
[2019-08-17] MEDS ORDERED: ENOXAPARIN 40 MG/0.4 ML INJ SUB-Q SCH (10:00)
--- NOTE | 2019-08-17 11:57 | Consultation ---
History of Present Illness - Reason for Consult Consult date: 08/17/19 - History of Present Illness 48 yo F PMHx HTN, leukopenia who presented to the hosptial complaining of myalgias, nausea, vomiting, and diarrhea. She notes these complaints began while she was vacationing in [place]. She denies any sick contacts and that her companions are not ill but that they have been to [place] on several previous occasions. Her diarrhea has been persistent since onset with >5 times per day. Otherwise denies abdominal cramps or pain. She does not believe she ate suspicious food, but is not certain. Febrile on admission to 103.1 with leukopenia. Not currently receiving antibiotics. Imaging personally reviewed: CXR: NAD Review of Systems: Bold if positive, otherwise negative General: fevers, chills, rigors HEENT: visual disturbance, diplopia, eye pain Respiratory: cough, sputum, hemoptysis, shortness of breath Cardiovascular: chest pain, syncope Gastrointestinal: nausea, vomiting, diarrhea, abdominal pain Genitourinary: dysuria, hematuria, flank pain Musculoskeletal: neck pain, back pain, joint pain, edema Neurologic: headaches, seizures Hematologic: easy bruising or bleeding Endocrine: night sweats, acute weight loss Skin: rash, jaundice, redness Psychiatric: suicidal, homicidal ideation Past History Past Medical History: hypertension. denies: COPD, diabetes, HIV/AIDS, hyperlipidemia Past Surgical History: denies: No surgical history Social history: lives with family, full code. denies: smoking, alcohol abuse, prescription drug abuse, IV drug use, AND/DNR-allow natural Family history: no significant family history Medications and Allergies Allergies Allergy/AdvReac Type Severity Reaction Status Date / Time No Known Allergies Allergy Unverified 07/22/18 00:26 Active Meds: Active Medications Acetaminophen (Tylenol) 650 mg PO Q4H PRN PRN Reason: Pain MILD(1-3)/Fever >100.5/PECK Albuterol (Proventil) 2.5 mg IH Q3HRT PRN PRN Reason: Shortness Of Breath Sodium Chloride (Nacl 0.9% 1000 Ml) 1,000 mls @ 150 mls/hr IV DIRECT SAVITA Ondansetron HCl (Zofran) 4 mg IV Q8H PRN PRN Reason: Nausea And Vomiting Sodium Chloride (Sodium Chloride Flush Syringe 10 Ml) 10 ml IV BID SAVITA Last Admin: 08/17/19 11:26 Dose: 10 ml Documented by: Sodium Chloride (Sodium Chloride Flush Syringe 10 Ml) 10 ml IV PRN PRN PRN Reason: LINE FLUSH Physical Examination - Physical Exam Narrative exam: Physical Exam: Constitutional: Alert, cooperative. No acute distress Head, Ears, Nose: Normocephalic, atraumatic. External ears, nose normal Eyes: Conjunctivae/corneas clear. No icterus. No ptosis. Neck: Supple, no meningeal signs Oral: dentition fair, no thrush Cardiovascular: S1, S2 normal. Respiratory: Good air entry, clear to auscultation bilaterally GI: Soft, non-tender; bowel sounds normal. No peritoneal signs. Musculoskeletal: No pedal edema, no cyanosis. Skin: No rash or abscess Hem/Lymphatic: No palpable cervical or supraclavicular nodes. No lymphangitis Psych: Mood ok. Affect normal Neurological: Awake, alert, oriented. No gross abnormality - Constitutional Vitals: Vital Signs Temp Pulse Resp BP Pulse Ox 99.1 F 97 H 20 110/73 98 08/17/19 09:37 08/17/19 09:37 08/17/19 09:37 08/17/19 10:35 08/17/19 10:35 Temperature -Last 24 Hours Temperature 99.1 F Temperature 98.8 F Temperature 100.1 F Temperature 100.2 F Temperature 103.1 F Results - Labs CBC & Chem 7: 08/17/19 08:22 08/17/19 03:57 Labs: Abnormal lab results 08/17/19 08/17/19 08/17/19 Range/Units 03:57 03:57 03:57 WBC 2.1 L (4.5-11.0) K/mm3 RBC 5.05 H (3.65-5.03) M/mm3 Hgb (10.1-14.3) gm/dl Hct (30.3-42.9) % MCV 68 L (79-97) fl MCH 22 L (28-32) pg RDW 22.1 H (13.2-15.2) % Plt Count 84 L (140-440) K/mm3 Seg Neutrophils # Man 1.3 L (1.8-7.7) K/mm3 Lymphocytes # (Manual) 0.6 L (1.2-5.4) K/mm3 INR (0.87-1.13) D-Dimer (0-234) ng/mlDDU Sodium 133 L (137-145) mmol/L Potassium 3.3 L (3.6-5.0) mmol/L Chloride 93.0 L (98-107) mmol/L Glucose 146 H (65-100) mg/dL Calcium 7.7 L (8.4-10.2) mg/dL AST 95 H (5-40) units/L Total Creatine Kinase 4050 H (30-135) units/L Albumin 3.7 L (3.9-5) g/dL 08/17/19 08/17/19 08/17/19 Range/Units 08:22 08:22 08:22 WBC 1.8 L* (4.5-11.0) K/mm3 RBC (3.65-5.03) M/mm3 Hgb 9.2 L (10.1-14.3) gm/dl Hct 29.1 L (30.3-42.9) % MCV 69 L (79-97) fl MCH 22 L (28-32) pg RDW 22.6 H (13.2-15.2) % Plt Count 65 L (140-440) K/mm3 Seg Neutrophils # Man (1.8-7.7) K/mm3 Lymphocytes # (Manual) (1.2-5.4) K/mm3 INR 1.14 H (0.87-1.13) D-Dimer 356.49 H (0-234) ng/mlDDU Sodium (137-145) mmol/L Potassium (3.6-5.0) mmol/L Chloride (98-107) mmol/L Glucose (65-100) mg/dL Calcium (8.4-10.2) mg/dL AST (5-40) units/L Total Creatine Kinase 3386 H (30-135) units/L Albumin (3.9-5) g/dL Assessment and Plan Cultures: 08/17 stool culture - pending A/P: 48 yo F PMHx HTN, leukopenia admitted with diarrhea with leukopenia and th rombocytopenia. 1. Sepsis - present with leukopenia and fever. Secondary to diarrheal illness 2. Traveller's Diarrhea - Concern for Shigella, which may progress to HUS. Risk for progression is higher if treated with antibiotics, as such would continue forward with supportive care. Obtained stool culture to evaluate. She is neutropenic. Thrombocytpenia and anemia presently, and borderline kidney function, but normal BUN. Continue to follow labs. Ordered haptoglobin and LDH. 3. HTN Recs: - continue supportive therapy for now - follow up stool culture - follow platelets, renal function, white cou,t BUN - follow up haptoglobin and LDH. Thank you for the consult, we will continue to follow. Edenilson Orlando MD [facility] ([facility]) M: [phone] O: [phone] F: [phone]
[2019-08-17 12:23] LABS: Anisocytosis 1+; Band Neutrophils # (Manual) 0.1 K/mm3; Basophils % (Manual) 0 % (0.0-1.8); Eosinophils % (Manual) 0 % (0.0-4.3); Hypochromasia 2+; Platelet Estimate Consistent w Auto; Tear Drop Cells Few; Total Cells Counted 100
[2019-08-17] MEDS: SODIUM CHLORIDE 0.9% 1000 ML 1,000 ML IV SCH (13:48)
--- NOTE | 2019-08-17 22:04 | Vascular Lab Report ---
DUPLEX DOPPLER LOWER EXTREMITY VEINS, BILATERAL INDICATION: dvt. TECHNIQUE: Duplex doppler imaging was performed through the veins of both lower extremities using venous stella juan and other maneuvers. COMPARISON: None available. FINDINGS: Right Common Femoral vein: Negative. Right Superficial Femoral vein: Negative. Right Popliteal vein: Negative. Right Calf veins: Negative. Left Common Femoral vein: Negative. Left Superficial Femoral vein: Negative. Left Popliteal vein: Negative. Left Calf veins: Negative. Additional findings: None. IMPRESSION: 1. No sonographic evidence for DVT in either lower extremity. Signer Name: Samuel Richards MD Signed: 08/17/2019 10:00 PM Workstation Name: [id number]
[2019-08-18] MEDS: SODIUM CHLORIDE 0.9% 1000 ML 1,000 ML IV SCH ×4 (00:13→17:31)
[2019-08-18 05:39] LABS: Hematocrit 31.6 % (30.3-42.9); Hemoglobin 10.2 gm/dl (10.1-14.3); Mean Corpuscular HGB Conc 32 % (30-34); Mean Corpuscular Volume 68 fl (79-97); Red Blood Count 4.62 M/mm3 (3.65-5.03); Red Cell Distribution Width 22.5 % (13.2-15.2)
[2019-08-18 05:40] LABS: Platelet Count 31 K/mm3 (140-440)
[2019-08-18 05:51] LABS: Alanine Aminotransferase 45 units/L (7-56); Albumin 3.2 g/dL (3.9-5); BUN/Creatinine Ratio 5; Blood Urea Nitrogen 4 mg/dL (7-17); Calcium 7.1 mg/dL (8.4-10.2); Hemolysis Index 1
[2019-08-18 06:54] LABS: Basophils % (Manual) 0 % (0.0-1.8); Eosinophils % (Manual) 0 % (0.0-4.3); Hypochromasia 1+; Total Cells Counted 100
[2019-08-18 06:55] LABS: Platelet Estimate Appears Decreased; Poikilocytosis 1+
--- NOTE | 2019-08-18 11:22 | Cat Scan Report ---
CTA CHEST WITH CONTRAST INDICATION : Chest pain, shortness of breath. TECHNIQUE: Axial imaging performed through the chest, with contrast bolus timing set to maximize opa cification of the pulmonary arteries. Sagittal and coronal reformatted images. 3-plane MIP reformatte d images were obtained. All CT scans at this location are performed using CT dose reduction for ALAR A by means of automated exposure control. 100 mL of intravenous contrast administered. COMPARISON: None FINDINGS: Bolus: Contrast bolus timing is adequate. PTE: No filling defect is present to suggest PTE. Mediastinum: Heart and great vessels appear normal. No pathologic mediastinal adenopathy. Lungs: Lungs are clear. Bones: Degenerative changes in the spine with nothing acute. Upper abdomen: Limited imaging of the upper abdomen shows nothing acute. IMPRESSION: Negative for PTE. Clear lungs. Signer Name: Fletcher Barcenas Jr, MD Signed: 08/18/2019 11:17 AM Workstation Name: [id number]
[2019-08-18] MEDS ORDERED: FLU VACC QUAD 2019-20 (3 YR UP)/PF 60 MCG/0.5 ML SYRINGE IM ONE (12:00)
--- NOTE | 2019-08-18 15:04 | Progress Note ---
Assessment and Plan Cultures: 08/17 stool culture - pending A/P: 48 yo F PMHx HTN, leukopenia admitted with diarrhea with leukopenia and thrombocytopenia. 1. Sepsis - present with leukopenia and fever. Likely secondary to diarrheal illness. Also need to consider Dengue fever as symptoms fit. Ordered Dengue IgM. 2. Traveller's Diarrhea - Concern for Shigella, which may progress to HUS. Risk for progression is higher if treated with antibiotics, as such would continue forward with supportive care. Obtained stool culture to evaluate. She is neutropenic. Thrombocytpenia and anemia presently, and borderline kidney function, but normal BUN. Continue to follow labs. Ordered haptoglobin and LDH. Renal function normal today after hydration. Unlikely to be HUS with normal renal function. 3. HTN 4. Hemolysis - LDH elevated, pending haptoglobin Recs: - continue supportive therapy for now - follow up stool culture - follow platelets, renal function, white count, BUN - follow up haptoglobin - follow up Dengue IgM Thank you for the consult, we will continue to follow. Edenilson Orlando MD [facility] ([facility]) M: [phone] O: [phone] F: [phone] Subjective Date of service: 08/18/19 Interval history: Feels improved. Notes stools are still loose, but much less frequent. Ongoing fevers, remains neutropenic. Objective - Exam Narrative Exam: Physical Exam: Constitutional: Alert, cooperative. No acute distress Head, Ears, Nose: Normocephalic, atraumatic. External ears, nose normal Eyes: Conjunctivae/corneas clear. No icterus. No ptosis. Neck: Supple, no meningeal signs Oral: dentition fair, no thrush Cardiovascular: S1, S2 normal. Respiratory: Good air entry, clear to auscultation bilaterally GI: Soft, non-tender; bowel sounds normal. No peritoneal signs. Musculoskeletal: No pedal edema, no cyanosis. Skin: No rash or abscess Hem/Lymphatic: No palpable cervical or supraclavicular nodes. No lymphangitis Psych: Mood ok. Affect normal Neurological: Awake, alert, oriented. No gross abnormality - Constitutional Vitals: Vital Signs Temp Pulse Resp BP Pulse Ox 98.9 F 93 H 20 129/80 100 08/18/19 05:34 08/18/19 05:34 08/18/19 05:34 08/18/19 05:34 08/18/19 10:00 Temperature -Last 24 Hours Temperature 98.9 F Temperature 102.8 F Temperature 100.8 F - Labs CBC & Chem 7: 08/18/19 05:10 08/18/19 05:10 Labs: Abnormal lab results 08/17/19 08/18/19 08/18/19 Range/Units 15:08 00:10 05:10 WBC 2.7 L (4.5-11.0) K/mm3 MCV 68 L (79-97) fl MCH 22 L (28-32) pg RDW 22.5 H (13.2-15.2) % Plt Count 31 L (140-440) K/mm3 Seg Neuts % (Manual) 30.0 L (40.0-70.0) % Lymphocytes % (Manual) 48.0 H (13.4-35.0) % Monocytes % (Manual) 16.0 H (0.0-7.3) % Seg Neutrophils # Man 0.8 L (1.8-7.7) K/mm3 Potassium (3.6-5.0) mmol/L BUN (7-17) mg/dL Calcium (8.4-10.2) mg/dL AST (5-40) units/L Lactate Dehydrogenase (91-180) units/L Total Creatine Kinase 4265 H 4528 H (30-135) units/L Albumin (3.9-5) g/dL 08/18/19 08/18/19 Range/Units 05:10 05:10 WBC (4.5-11.0) K/mm3 MCV (79-97) fl MCH (28-32) pg RDW (13.2-15.2) % Plt Count (140-440) K/mm3 Seg Neuts % (Manual) (40.0-70.0) % Lymphocytes % (Manual) (13.4-35.0) % Monocytes % (Manual) (0.0-7.3) % Seg Neutrophils # Man (1.8-7.7) K/mm3 Potassium 3.5 L (3.6-5.0) mmol/L BUN 4 L (7-17) mg/dL Calcium 7.1 L (8.4-10.2) mg/dL AST 104 H (5-40) units/L Lactate Dehydrogenase 556 H (91-180) units/L Total Creatine Kinase (30-135) units/L Albumin 3.2 L (3.9-5) g/dL
--- NOTE | 2019-08-18 15:51 | Progress Note ---
Assessment and Plan Assessment and plan: Patient is a 48 yo woman with a history of hypertension who presented to [facility] with diarrhea and fevers. She just returned from [place]. She is found to have rhabdomyolysis, fevers, hypotension. Acute Diarrhea, suspected Shigella infection: ID consulted, input noted Sepsis with Infectious Diarrhea, poa: ID following, treat the above Acute Rhabdomyolysis: treat with IVF, serial CPK levels HTN: continue to monitor Thrombocytopenia, worsening: consult Heme/Onc, try to limit blood sticks Positive fecal occult blood testing but not anemic, most likely from Diarrhea: continue to monitor Hypokalemia: replace History Interval history: Patient was seen and examined. Follow-up on current diagnosis of Diarrhea. No overnight events reported to me. Patient denies any chest pain, shortness breath, nausea/vomiting or severe headaches. Imaging, nursing note, chart, labs and old chart reviewed. Discussed with patient. Hospitalist Physical - Physical exam Narrative exam: Gen: WDWN, NAD, Awake, Alert, Orientated HEENT: NCAT, EOMI, PERRL, OP Clear Neck: supple, no adenopathy, no thyromegaly, no JVD CVS/Heart: RRR, normal S1S2, pulses present bilaterally Chest/Lungs: CTA B, Symmetrical chest expansion, good air entry bilaterally GI/Abdomen: soft, NTND, good bowel sounds, no guarding or rebound /Bladder: no suprapubic tenderness, no CVA or paraspinal tenderness Extermity/Skin: no c/c/e, no obvious rash MSK: FROM x 4 Neuro: CN 2-12 grossly intact, no new focal deficits Psych: calm - Constitutional Vitals: Temp Pulse Resp BP Pulse Ox 98.9 F 93 H 20 129/80 100 08/18/19 05:34 08/18/19 05:34 08/18/19 05:34 08/18/19 05:34 08/18/19 10:00 General appearance: Absent: mild distress Results - Labs CBC & Chem 7: 08/18/19 05:10 08/18/19 05:10 Labs: Laboratory Last Values WBC 2.7 K/mm3 (4.5-11.0) L 08/18/19 05:10 RBC 4.62 M/mm3 (3.65-5.03) 08/18/19 05:10 Hgb 10.2 gm/dl (10.1-14.3) 08/18/19 05:10 Hct 31.6 % (30.3-42.9) 08/18/19 05:10 MCV 68 fl (79-97) L 08/18/19 05:10 MCH 22 pg (28-32) L 08/18/19 05:10 MCHC 32 % (30-34) 08/18/19 05:10 RDW 22.5 % (13.2-15.2) H 08/18/19 05:10 Plt Count 31 K/mm3 (140-440) L 08/18/19 05:10 Lymph % (Auto) Allied Health Teacher 08/18/19 05:10 [place] % (Auto) Allied Health Teacher 08/18/19 05:10 Eos % (Auto) Allied Health Teacher 08/18/19 05:10 Baso % (Auto) Allied Health Teacher 08/18/19 05:10 Lymph # Allied Health Teacher 08/18/19 05:10 [place] # Allied Health Teacher 08/18/19 05:10 Eos # Allied Health Teacher 08/18/19 05:10 Baso # Allied Health Teacher 08/18/19 05:10 Add Manual Diff Complete 08/18/19 05:10 Total Counted 100 08/18/19 05:10 Seg Neutrophils % Allied Health Teacher 08/18/19 05:10 Seg Neuts % (Manual) 30.0 % (40.0-70.0) L 08/18/19 05:10 Band Neutrophils % 0 % 08/18/19 05:10 Lymphocytes % (Manual) 48.0 % (13.4-35.0) H 08/18/19 05:10 Reactive Lymphs % (Man) 6.0 % 08/18/19 05:10 Monocytes % (Manual) 16.0 % (0.0-7.3) H 08/18/19 05:10 Eosinophils % (Manual) 0 % (0.0-4.3) 08/18/19 05:10 Basophils % (Manual) 0 % (0.0-1.8) 08/18/19 05:10 Metamyelocytes % 0 % 08/18/19 05:10 Myelocytes % 0 % 08/18/19 05:10 Promyelocytes % 0 % 08/18/19 05:10 Blast Cells % 0 % 08/18/19 05:10 Nucleated RBC % Not Reportable 08/18/19 05:10 Seg Neutrophils # Allied Health Teacher 08/18/19 05:10 Seg Neutrophils # Man 0.8 K/mm3 (1.8-7.7) L 08/18/19 05:10 Band Neutrophils # 0.0 K/mm3 08/18/19 05:10 Lymphocytes # (Manual) 1.3 K/mm3 (1.2-5.4) 08/18/19 05:10 Abs React Lymphs (Man) 0.2 K/mm3 08/18/19 05:10 Monocytes # (Manual) 0.4 K/mm3 (0.0-0.8) 08/18/19 05:10 Eosinophils # (Manual) 0.0 K/mm3 (0.0-0.4) 08/18/19 05:10 Basophils # (Manual) 0.0 K/mm3 (0.0-0.1) 08/18/19 05:10 Metamyelocytes # 0.0 K/mm3 08/18/19 05:10 Myelocytes # 0.0 K/mm3 08/18/19 05:10 Promyelocytes # 0.0 K/mm3 08/18/19 05:10 Blast Cells # 0.0 K/mm3 08/18/19 05:10 WBC Morphology Not Reportable 08/18/19 05:10 Hypersegmented Neuts Not Reportable 08/18/19 05:10 Hyposegmented Neuts Not Reportable 08/18/19 05:10 Hypogranular Neuts Not Reportable 08/18/19 05:10 Smudge Cells Not Reportable 08/18/19 05:10 Toxic Granulation Not Reportable 08/18/19 05:10 Toxic Vacuolation Not Reportable 08/18/19 05:10 Dohle Bodies Not Reportable 08/18/19 05:10 Pelger-Huet Anomaly Not Reportable 08/18/19 05:10 Julia Rods Not Reportable 08/18/19 05:10 Platelet Estimate Appears decreased 08/18/19 05:10 Clumped Platelets Not Reportable 08/18/19 05:10 Plt Clumps, EDTA Not Reportable 08/18/19 05:10 Large Platelets Not Reportable 08/18/19 05:10 Giant Platelets Not Reportable 08/18/19 05:10 Platelet Satelliting Not Reportable 08/18/19 05:10 Plt Morphology Comment Not Reportable 08/18/19 05:10 RBC Morphology Not Reportable 08/18/19 05:10 Dimorphic RBCs Not Reportable 08/18/19 05:10 Polychromasia Not Reportable 08/18/19 05:10 Hypochromasia 1+ 08/18/19 05:10 Poikilocytosis 1+ 08/18/19 05:10 Anisocytosis Not Reportable 08/18/19 05:10 Microcytosis 1+ 08/18/19 05:10 Macrocytosis Not Reportable 08/18/19 05:10 Spherocytes Not Reportable 08/18/19 05:10 Pappenheimer Bodies Not Reportable 08/18/19 05:10 Sickle Cells Not Reportable 08/18/19 05:10 Target Cells Not Reportable 08/18/19 05:10 Tear Drop Cells Not Reportable 08/18/19 05:10 Ovalocytes Not Reportable 08/18/19 05:10 Helmet Cells Not Reportable 08/18/19 05:10 [place] Bodies Not Reportable 08/18/19 05:10 [place] Rings Not Reportable 08/18/19 05:10 [place] Cells Not Reportable 08/18/19 05:10 Bite Cells Not Reportable 08/18/19 05:10 Crenated Cell Not Reportable 08/18/19 05:10 Elliptocytes Rare 08/18/19 05:10 Acanthocytes (Spur) Not Reportable 08/18/19 05:10 Rouleaux Not Reportable 08/18/19 05:10 Hemoglobin C Crystals Not Reportable 08/18/19 05:10 Schistocytes Not Reportable 08/18/19 05:10 Malaria parasites Not Reportable 08/18/19 05:10 Morro Bodies Not Reportable 08/18/19 05:10 Hem Pathologist Commnt No 08/18/19 05:10 PT 14.3 Sec. (12.2-14.9) 08/17/19 08:22 INR 1.14 (0.87-1.13) H 08/17/19 08:22 APTT 34.4 Sec. (24.2-36.6) 08/17/19 08:22 Fibrinogen 224 mg/dl (211-480) 08/17/19 08:22 D-Dimer 356.49 ng/mlDDU (0-234) H 08/17/19 08:22 VBG pH 7.405 (7.320-7.420) 08/17/19 03:57 Sodium 139 mmol/L (137-145) 08/18/19 05:10 Potassium 3.5 mmol/L (3.6-5.0) L 08/18/19 05:10 Chloride 103.5 mmol/L (98-107) 08/18/19 05:10 Carbon Dioxide 26 mmol/L (22-30) 08/18/19 05:10 Anion Gap 13 mmol/L 08/18/19 05:10 BUN 4 mg/dL (7-17) L 08/18/19 05:10 Creatinine 0.8 mg/dL (0.7-1.2) 08/18/19 05:10 Estimated GFR > 60 ml/min 08/18/19 05:10 BUN/Creatinine Ratio 5 % 08/18/19 05:10 Glucose 86 mg/dL (65-100) 08/18/19 05:10 Lactic Acid 1.00 mmol/L (0.7-2.0) 08/17/19 06:21 Calcium 7.1 mg/dL (8.4-10.2) L 08/18/19 05:10 Magnesium 1.70 mg/dL (1.7-2.3) 08/17/19 03:57 Total Bilirubin 0.30 mg/dL (0.1-1.2) 08/18/19 05:10 AST 104 units/L (5-40) H 08/18/19 05:10 ALT 45 units/L (7-56) 08/18/19 05:10 Alkaline Phosphatase 37 units/L (35-129) 08/18/19 05:10 Lactate Dehydrogenase 556 units/L (91-180) H 08/18/19 05:10 Total Creatine Kinase 4528 units/L (30-135) H 08/18/19 00:10 Total Protein 6.8 g/dL (6.3-8.2) 08/18/19 05:10 Albumin 3.2 g/dL (3.9-5) L 08/18/19 05:10 Albumin/Globulin Ratio 0.9 % 08/18/19 05:10 Urine Color Yellow (Yellow) 08/17/19 06:30 Urine Turbidity Clear (Clear) 08/17/19 06:30 Urine pH 6.0 (5.0-7.0) 08/17/19 06:30 Ur Specific [place] 1.012 (1.003-1.030) 08/17/19 06:30 Urine Protein <15 mg/dl mg/dL (Negative) 08/17/19 06:30 Urine Glucose (UA) Neg mg/dL (Negative) 08/17/19 06:30 Urine Ketones Neg mg/dL (Negative) 08/17/19 06:30 Urine Blood Neg (Negative) 08/17/19 06:30 Urine Nitrite Neg (Negative) 08/17/19 06:30 Urine Bilirubin Neg (Negative) 08/17/19 06:30 Urine Urobilinogen < 2.0 mg/dL (<2.0) 08/17/19 06:30 Ur Leukocyte Esterase Neg (Negative) 08/17/19 06:30 Urine WBC (Auto) 2.0 /HPF (0.0-6.0) 08/17/19 06:30 Urine RBC (Auto) 3.0 /HPF (0.0-6.0) 08/17/19 06:30 U Epithel Cells (Auto) 1.0 /HPF (0-13.0) 08/17/19 06:30 Urine Bacteria (Auto) 1+ /HPF (Negative) 08/17/19 06:30 Urine HCG, Qual Negative (Negative) 08/17/19 06:30 C. difficile Tox (PCR) Negative (Negative) 08/17/19 09:30 Influenza A (Rapid) Negative (Negative) 08/17/19 05:00 Influenza B (Rapid) Negative (Negative) 08/17/19 05:00 Active Medications - Current Medications Current Medications: Generic Name Dose Route Start Last Admin Trade Name Freq PRN Reason Stop Dose Admin Acetaminophen 650 mg 08/17/19 07:53 08/17/19 22:42 Tylenol PO 650 mg Q4H PRN Administration Pain MILD(1-3)/Fever >100.5/PECK Albuterol 2.5 mg 08/17/19 07:53 Proventil IH Q3HRT PRN Shortness Of Breath Sodium Chloride 1,000 mls @ 150 mls/hr 08/17/19 11:00 08/18/19 06:35 Nacl 0.9% 1000 Ml IV 150 mls/hr DIRECT SAVITA Administration Ondansetron HCl 4 mg 08/17/19 07:53 Zofran IV Q8H PRN Nausea And Vomiting Potassium Chloride 40 meq 08/18/19 16:00 Potassium Chloride PO 08/18/19 19:00 ONCE NR Sodium Chloride 10 ml 08/17/19 10:00 08/18/19 10:18 Sodium Chloride Flush Syringe 10 Ml IV 10 ml BID SAVITA Administration Sodium Chloride 10 ml 08/17/19 07:53 Sodium Chloride Flush Syringe 10 Ml IV PRN PRN LINE FLUSH
[2019-08-18] MEDS ORDERED: POTASSIUM CHLORIDE 20 MEQ PACKET PO NR (16:00)
[2019-08-19] MEDS: SODIUM CHLORIDE 0.9% 1000 ML 1,000 ML IV SCH ×2 (00:10→06:27)
[2019-08-19 06:55] LABS: Hematocrit 28.8 % (30.3-42.9); Hemoglobin 9.3 gm/dl (10.1-14.3); Mean Corpuscular HGB Conc 32 % (30-34); Red Blood Count 4.24 M/mm3 (3.65-5.03)
[2019-08-19 07:03] LABS: Mean Corpuscular Volume 68 fl (79-97); Red Cell Distribution Width 22.9 % (13.2-15.2)
[2019-08-19 07:16] LABS: BUN/Creatinine Ratio 8; Blood Urea Nitrogen 5 mg/dL (7-17); Calcium 7.2 mg/dL (8.4-10.2); Hemolysis Index 0
[2019-08-19 08:42] LABS: Platelet Count 31 K/mm3 (140-440)
--- NOTE | 2019-08-19 12:58 | Progress Note ---
Assessment and Plan Assessment and plan: Patient is a 48 yo woman with a history of hypertension and Leukopenia who presented to [facility] ED with diarrhea and fevers. She just returned from [place]. She is found to have rhabdomyolysis, fevers, hypotension. Acute Diarrhea, suspected Shigella infection: ID consulted, input noted Sepsis with Infectious Diarrhea, poa: ID following, treat the above Acute Rhabdomyolysis, resolved: treated with IVF, HTN: continue to monitor Thrombocytopenia, worsening: consulted Heme/Onc, d/w Dr. Charles Positive fecal occult blood testing: consulted GI Hypokalemia: repleted, monitor BMP Pancytopenia: I called Hematology lab and spoke with Ede to obtain stat peripheral blood smear to be read by Pathology. DVT ppx: no a/c due to thrombocytopenia Disposition: continue inpatient care, once blood counts/cbc stabilize then d/c home. History Interval history: Patient was seen and examined. Follow-up on current diagnosis of Diarrhea. No overnight events reported to me. Patient denies any chest pain, shortness breath, nausea/vomiting or severe headaches. Imaging, nursing note, chart, labs and old chart reviewed. Discussed with patient. Hospitalist Physical - Physical exam Narrative exam: Gen: WDWN, NAD, Awake, Alert, Orientated HEENT: NCAT, EOMI, PERRL, OP Clear Neck: supple, no adenopathy, no thyromegaly, no JVD CVS/Heart: RRR, normal S1S2, pulses present bilaterally Chest/Lungs: CTA B, Symmetrical chest expansion, good air entry bilaterally GI/Abdomen: soft, NTND, good bowel sounds, no guarding or rebound /Bladder: no suprapubic tenderness, no CVA or paraspinal tenderness Extermity/Skin: no c/c/e, no obvious rash MSK: FROM x 4 Neuro: CN 2-12 grossly intact, no new focal deficits Psych: calm - Constitutional Vitals: Temp Pulse Resp BP Pulse Ox 97.3 F L 79 20 133/97 96 08/19/19 05:10 08/19/19 05:10 08/19/19 05:10 08/19/19 05:10 08/19/19 09:51 General appearance: Absent: mild distress Results - Labs CBC & Chem 7: 08/19/19 06:07 08/19/19 06:07 Labs: Laboratory Last Values WBC 3.1 K/mm3 (4.5-11.0) L 08/19/19 06:07 RBC 4.24 M/mm3 (3.65-5.03) 08/19/19 06:07 Hgb 9.3 gm/dl (10.1-14.3) L 08/19/19 06:07 Hct 28.8 % (30.3-42.9) L 08/19/19 06:07 MCV 68 fl (79-97) L 08/19/19 06:07 MCH 22 pg (28-32) L 08/19/19 06:07 MCHC 32 % (30-34) 08/19/19 06:07 RDW 22.9 % (13.2-15.2) H 08/19/19 06:07 Plt Count 31 K/mm3 (140-440) L 08/19/19 06:07 Lymph % (Auto) Pet Care Associate 08/18/19 05:10 [place] % (Auto) Pet Care Associate 08/18/19 05:10 Eos % (Auto) Pet Care Associate 08/18/19 05:10 Baso % (Auto) Pet Care Associate 08/18/19 05:10 Lymph # Pet Care Associate 08/18/19 05:10 [place] # Pet Care Associate 08/18/19 05:10 Eos # Pet Care Associate 08/18/19 05:10 Baso # Pet Care Associate 08/18/19 05:10 Add Manual Diff Complete 08/18/19 05:10 Total Counted 100 08/18/19 05:10 Seg Neutrophils % Pet Care Associate 08/18/19 05:10 Seg Neuts % (Manual) 30.0 % (40.0-70.0) L 08/18/19 05:10 Band Neutrophils % 0 % 08/18/19 05:10 Lymphocytes % (Manual) 48.0 % (13.4-35.0) H 08/18/19 05:10 Reactive Lymphs % (Man) 6.0 % 08/18/19 05:10 Monocytes % (Manual) 16.0 % (0.0-7.3) H 08/18/19 05:10 Eosinophils % (Manual) 0 % (0.0-4.3) 08/18/19 05:10 Basophils % (Manual) 0 % (0.0-1.8) 08/18/19 05:10 Metamyelocytes % 0 % 08/18/19 05:10 Myelocytes % 0 % 08/18/19 05:10 Promyelocytes % 0 % 08/18/19 05:10 Blast Cells % 0 % 08/18/19 05:10 Nucleated RBC % Not Reportable 08/18/19 05:10 Seg Neutrophils # Pet Care Associate 08/18/19 05:10 Seg Neutrophils # Man 0.8 K/mm3 (1.8-7.7) L 08/18/19 05:10 Band Neutrophils # 0.0 K/mm3 08/18/19 05:10 Lymphocytes # (Manual) 1.3 K/mm3 (1.2-5.4) 08/18/19 05:10 Abs React Lymphs (Man) 0.2 K/mm3 08/18/19 05:10 Monocytes # (Manual) 0.4 K/mm3 (0.0-0.8) 08/18/19 05:10 Eosinophils # (Manual) 0.0 K/mm3 (0.0-0.4) 08/18/19 05:10 Basophils # (Manual) 0.0 K/mm3 (0.0-0.1) 08/18/19 05:10 Metamyelocytes # 0.0 K/mm3 08/18/19 05:10 Myelocytes # 0.0 K/mm3 08/18/19 05:10 Promyelocytes # 0.0 K/mm3 08/18/19 05:10 Blast Cells # 0.0 K/mm3 08/18/19 05:10 WBC Morphology Not Reportable 08/18/19 05:10 Hypersegmented Neuts Not Reportable 08/18/19 05:10 Hyposegmented Neuts Not Reportable 08/18/19 05:10 Hypogranular Neuts Not Reportable 08/18/19 05:10 Smudge Cells Not Reportable 08/18/19 05:10 Toxic Granulation Not Reportable 08/18/19 05:10 Toxic Vacuolation Not Reportable 08/18/19 05:10 Dohle Bodies Not Reportable 08/18/19 05:10 Pelger-Huet Anomaly Not Reportable 08/18/19 05:10 Julia Rods Not Reportable 08/18/19 05:10 Platelet Estimate Appears decreased 08/18/19 05:10 Clumped Platelets Not Reportable 08/18/19 05:10 Plt Clumps, EDTA Not Reportable 08/18/19 05:10 Large Platelets Not Reportable 08/18/19 05:10 Giant Platelets Not Reportable 08/18/19 05:10 Platelet Satelliting Not Reportable 08/18/19 05:10 Plt Morphology Comment Not Reportable 08/18/19 05:10 RBC Morphology Not Reportable 08/18/19 05:10 Dimorphic RBCs Not Reportable 08/18/19 05:10 Polychromasia Not Reportable 08/18/19 05:10 Hypochromasia 1+ 08/18/19 05:10 Poikilocytosis 1+ 08/18/19 05:10 Anisocytosis Not Reportable 08/18/19 05:10 Microcytosis 1+ 08/18/19 05:10 Macrocytosis Not Reportable 08/18/19 05:10 Spherocytes Not Reportable 08/18/19 05:10 Pappenheimer Bodies Not Reportable 08/18/19 05:10 Sickle Cells Not Reportable 08/18/19 05:10 Target Cells Not Reportable 08/18/19 05:10 Tear Drop Cells Not Reportable 08/18/19 05:10 Ovalocytes Not Reportable 08/18/19 05:10 Helmet Cells Not Reportable 08/18/19 05:10 Rodriguez-[place] Bodies Not Reportable 08/18/19 05:10 [place] Rings Not Reportable 08/18/19 05:10 Nicholas Cells Not Reportable 08/18/19 05:10 Bite Cells Not Reportable 08/18/19 05:10 Crenated Cell Not Reportable 08/18/19 05:10 Elliptocytes Rare 08/18/19 05:10 Acanthocytes (Spur) Not Reportable 08/18/19 05:10 Rouleaux Not Reportable 08/18/19 05:10 Hemoglobin C Crystals Not Reportable 08/18/19 05:10 Schistocytes Not Reportable 08/18/19 05:10 Malaria parasites Not Reportable 08/18/19 05:10 [place] Bodies Not Reportable 08/18/19 05:10 Hem Pathologist Commnt No 08/18/19 05:10 PT 14.3 Sec. (12.2-14.9) 08/17/19 08:22 INR 1.14 (0.87-1.13) H 08/17/19 08:22 APTT 34.4 Sec. (24.2-36.6) 08/17/19 08:22 Fibrinogen 224 mg/dl (211-480) 08/17/19 08:22 D-Dimer 356.49 ng/mlDDU (0-234) H 08/17/19 08:22 VBG pH 7.405 (7.320-7.420) 08/17/19 03:57 Sodium 138 mmol/L (137-145) 08/19/19 06:07 Potassium 3.9 mmol/L (3.6-5.0) 08/19/19 06:07 Chloride 106.2 mmol/L (98-107) 08/19/19 06:07 Carbon Dioxide 25 mmol/L (22-30) 08/19/19 06:07 Anion Gap 11 mmol/L 08/19/19 06:07 BUN 5 mg/dL (7-17) L 08/19/19 06:07 Creatinine 0.6 mg/dL (0.7-1.2) L 08/19/19 06:07 Estimated GFR > 60 ml/min 08/19/19 06:07 BUN/Creatinine Ratio 8 % 08/19/19 06:07 Glucose 93 mg/dL (65-100) 08/19/19 06:07 Lactic Acid 1.00 mmol/L (0.7-2.0) 08/17/19 06:21 Calcium 7.2 mg/dL (8.4-10.2) L 08/19/19 06:07 Magnesium 1.70 mg/dL (1.7-2.3) 08/17/19 03:57 Total Bilirubin 0.30 mg/dL (0.1-1.2) 08/18/19 05:10 AST 104 units/L (5-40) H 08/18/19 05:10 ALT 45 units/L (7-56) 08/18/19 05:10 Alkaline Phosphatase 37 units/L (35-129) 08/18/19 05:10 Lactate Dehydrogenase 556 units/L (91-180) H 08/18/19 05:10 Total Creatine Kinase 4528 units/L (30-135) H 08/18/19 00:10 Total Protein 6.8 g/dL (6.3-8.2) 08/18/19 05:10 Albumin 3.2 g/dL (3.9-5) L 08/18/19 05:10 Albumin/Globulin Ratio 0.9 % 08/18/19 05:10 Urine Color Yellow (Yellow) 08/17/19 06:30 Urine Turbidity Clear (Clear) 08/17/19 06:30 Urine pH 6.0 (5.0-7.0) 08/17/19 06:30 Ur Specific [place] 1.012 (1.003-1.030) 08/17/19 06:30 Urine Protein <15 mg/dl mg/dL (Negative) 08/17/19 06:30 Urine Glucose (UA) Neg mg/dL (Negative) 08/17/19 06:30 Urine Ketones Neg mg/dL (Negative) 08/17/19 06:30 Urine Blood Neg (Negative) 08/17/19 06:30 Urine Nitrite Neg (Negative) 08/17/19 06:30 Urine Bilirubin Neg (Negative) 08/17/19 06:30 Urine Urobilinogen < 2.0 mg/dL (<2.0) 08/17/19 06:30 Ur Leukocyte Esterase Neg (Negative) 08/17/19 06:30 Urine WBC (Auto) 2.0 /HPF (0.0-6.0) 08/17/19 06:30 Urine RBC (Auto) 3.0 /HPF (0.0-6.0) 08/17/19 06:30 U Epithel Cells (Auto) 1.0 /HPF (0-13.0) 08/17/19 06:30 Urine Bacteria (Auto) 1+ /HPF (Negative) 08/17/19 06:30 Urine HCG, Qual Negative (Negative) 08/17/19 06:30 C. difficile Tox (PCR) Negative (Negative) 08/17/19 09:30 Influenza A (Rapid) Negative (Negative) 08/17/19 05:00 Influenza B (Rapid) Negative (Negative) 08/17/19 05:00 Active Medications - Current Medications Current Medications: Generic Name Dose Route Start Last Admin Trade Name Freq PRN Reason Stop Dose Admin Acetaminophen 650 mg 08/17/19 07:53 08/17/19 22:42 Tylenol PO 650 mg Q4H PRN Administration Pain MILD(1-3)/Fever >100.5/PECK Albuterol 2.5 mg 08/17/19 07:53 Proventil IH Q3HRT PRN Shortness Of Breath Sodium Chloride 1,000 mls @ 150 mls/hr 08/17/19 11:00 08/19/19 06:27 Nacl 0.9% 1000 Ml IV 150 mls/hr DIRECT SAVITA Administration Ondansetron HCl 4 mg 08/17/19 07:53 Zofran IV Q8H PRN Nausea And Vomiting Sodium Chloride 10 ml 08/17/19 10:00 08/19/19 09:44 Sodium Chloride Flush Syringe 10 Ml IV 10 ml BID SAVITA Administration Sodium Chloride 10 ml 08/17/19 07:53 Sodium Chloride Flush Syringe 10 Ml IV PRN PRN LINE FLUSH
[2019-08-19 15:38] LABS: Basophils % (Manual) 0 % (0.0-1.8); Hypochromasia 2+; Total Cells Counted 100
[2019-08-19 15:39] LABS: Burr Cells 1+; Ovalocytes 1+; Tear Drop Cells Few
[2019-08-19 15:44] LABS: Platelet Estimate Consistent w Auto; Poikilocytosis 1+; Target Cells Rare
[2019-08-19 16:16] LABS: Iron 38 ug/dL (37-170); Total Iron Binding Capacity 316 mcg/dL (250-450)
--- NOTE | 2019-08-19 17:19 | Progress Note ---
Assessment and Plan Cultures: 08/17 stool culture - pending A/P: 48 yo F PMHx HTN, leukopenia admitted with diarrhea with leukopenia and thrombocytopenia 1. Sepsis - fever resolved, neutropenia better, platelets lower. Mild transaminitis. etiology ? from travelers diarrhea ? dengue fever/chikungunya/zika virus - reports multiple mosquitoes bites 2. Traveller's Diarrhea - ?Shigellosis/Campylobacter/ETEC Recs: - continue supportive therapy for now - follow up stool culture - follow platelets - send dengue fever/chikungunya/zika virus serology Will follow. Pam Cota MD Infectious Diseases [employer] [facility] ([facility]) M [phone] O [phone] Subjective Date of service: 08/19/19 Principal diagnosis: fever, diarrhea Interval history: Feels better, diarrhea better, fever resolved +bloody stools Objective - Exam Narrative Exam: General appearance: Alert in NAD Eyes: anicteric sclerae, moist conjunctivae; no lid-lag; PERRLA HENT: Atraumatic; oropharynx clear with moist mucous membranes and no mucosal ulcerations/no oral thrush; normal hard and soft palate. Lungs: CTA, with normal respiratory effort and no intercostal retractions CV: RRR no murmur Abdomen: Soft, non-tender; no masses or hepatosplenomegaly Extremities: no edema, no cyanosis Skin: No rash. Psych: Appropriate affect, alert and oriented to person, place and time. Neuro: alert and oriented x 3. Moving all extermities - Constitutional Vitals: Vital Signs Temp Pulse Resp BP Pulse Ox 97.9 F 77 16 100/58 100 08/19/19 11:51 08/19/19 11:51 08/19/19 11:51 08/19/19 11:51 08/19/19 11:51 Temperature -Last 24 Hours Temperature 97.9 F Temperature 97.3 F Temperature 98.7 F - Labs CBC & Chem 7: 08/19/19 06:07 08/19/19 06:07 Labs: Abnormal lab results 08/19/19 08/19/19 Range/Units 06:07 06:07 WBC 3.1 L (4.5-11.0) K/mm3 Hgb 9.3 L (10.1-14.3) gm/dl Hct 28.8 L (30.3-42.9) % MCV 68 L (79-97) fl MCH 22 L (28-32) pg RDW 22.9 H (13.2-15.2) % Plt Count 31 L (140-440) K/mm3 Seg Neuts % (Manual) 10.0 L (40.0-70.0) % Lymphocytes % (Manual) 74.0 H (13.4-35.0) % Seg Neutrophils # Man 0.3 L (1.8-7.7) K/mm3 BUN 5 L (7-17) mg/dL Creatinine 0.6 L (0.7-1.2) mg/dL Calcium 7.2 L (8.4-10.2) mg/dL
[2019-08-19 21:54] LABS: Hematocrit 33.9 % (30.3-42.9); Hemoglobin 10.8 gm/dl (10.1-14.3); Mean Corpuscular HGB Conc 32 % (30-34); Red Blood Count 4.96 M/mm3 (3.65-5.03)
[2019-08-19 22:08] LABS: Mean Corpuscular Volume 68 fl (79-97)
[2019-08-19 22:50] LABS: Anisocytosis 1+; Hypochromasia 1+; Platelet Estimate Consistent w Auto; Target Cells 1+; Total Cells Counted 100
[2019-08-19 23:07] LABS: Platelet Count 33 K/mm3 (140-440)
[2019-08-20] MEDS ORDERED: hydrALAZINE 20 MG/1 ML INJ IV PRN (00:01)
--- NOTE | 2019-08-20 04:25 | Event Note ---
Date: 08/19/19 [id number]
[2019-08-20 06:11] LABS: Hematocrit 29.9 % (30.3-42.9); Hemoglobin 9.6 gm/dl (10.1-14.3); Mean Corpuscular HGB Conc 32 % (30-34); Red Blood Count 4.39 M/mm3 (3.65-5.03)
[2019-08-20 06:36] LABS: BUN/Creatinine Ratio 7; Blood Urea Nitrogen 4 mg/dL (7-17); Hemolysis Index 2
[2019-08-20 06:37] LABS: Mean Corpuscular Volume 68 fl (79-97); Red Cell Distribution Width 22.5 % (13.2-15.2)
--- NOTE | 2019-08-20 07:15 | Hem/Onc Progress Note ---
Assessment and Plan 1. Thrombocytopenia. This may be a reactive phenomenon, infection versus rhabdomyolysis may have a role. We will follow the trend. 2. Leukopenia. The patient has a history of leukopenia. ANC are low. We will follow reverse isolation. Details referring to his leukopenia will be looked into. 3. Anemia. MCV is low. This could be iron deficiency versus thalassemia. We will follow. 4. Elevated CPK. 5. Rhabdomyolysis. 6. Elevated LDH. 7. The patient was seen by ID team. Peripheral smear has been ordered. d/w dr aleman - OP an option for platelets - Patient Problems (1) Thrombocytopenia Status: Acute Subjective Date of service: 08/20/19 Principal diagnosis: low platelets Interval history: diarrhea resolved Objective - Exam Narrative Exam: Pain - n/a General appearance - stable Performance status self care Eyes - no icterus ENT - no bleeding LNs cervical not palpable Neck - no LN Respiratory Normal Breath sounds - CTA anteriorly CVS S1 S2 + Extremities no edema General GI Soft Rectal deferred female - deferred Skin warm Musculoskeletal moves limbs Neurologically - alert awake - Constitutional Vitals: Last Vital Signs Temp 97.8 F 08/20/19 06:25 Pulse 72 08/20/19 06:25 Resp 18 08/20/19 06:25 BP 152/56 08/20/19 06:25 Pulse Ox 99 08/20/19 06:25 - Labs Lab Results: Laboratory Results - last 24 hr 08/17/19 08/19/19 08/19/19 10:13 06:07 06:07 WBC 3.1 L RBC 4.24 Hgb 9.3 L Hct 28.8 L MCV 68 L MCH 22 L MCHC 32 RDW 22.9 H Plt Count 31 L Lymph % (Auto) [place] % (Auto) Add Manual Diff Total Counted 100 Seg Neutrophils % Seg Neuts % (Manual) 10.0 L Band Neutrophils % 0 Lymphocytes % (Manual) 74.0 H Reactive Lymphs % (Man) 13.0 Monocytes % (Manual) 1.0 Eosinophils % (Manual) 2.0 Basophils % (Manual) 0 Metamyelocytes % 0 Myelocytes % 0 Promyelocytes % 0 Blast Cells % 0 Nucleated RBC % Seg Neutrophils # Man 0.3 L Band Neutrophils # 0.0 Lymphocytes # (Manual) 2.3 Abs React Lymphs (Man) 0.4 Monocytes # (Manual) 0.0 Eosinophils # (Manual) 0.1 Basophils # (Manual) 0.0 Metamyelocytes # 0.0 Myelocytes # 0.0 Promyelocytes # 0.0 Blast Cells # 0.0 Pathologist Review WBC Morphology Not Reportable Hypersegmented Neuts Not Reportable Hyposegmented Neuts Not Reportable Hypogranular Neuts Not Reportable Smudge Cells Not Reportable Toxic Granulation Not Reportable Toxic Vacuolation Not Reportable Dohle Bodies Not Reportable Pelger-Huet Anomaly Julia Rods Not Reportable Platelet Estimate Consistent w auto Clumped Platelets Not Reportable Plt Clumps, EDTA Not Reportable Large Platelets Not Reportable Giant Platelets Not Reportable Platelet Satelliting Not Reportable Plt Morphology Comment Not Reportable RBC Morphology Not Reportable Dimorphic RBCs Not Reportable Polychromasia Not Reportable Hypochromasia 2+ Poikilocytosis 1+ Anisocytosis Not Reportable Microcytosis 1+ Macrocytosis Not Reportable Spherocytes Not Reportable Pappenheimer Bodies Not Reportable Sickle Cells Not Reportable Target Cells Rare Tear Drop Cells Few Ovalocytes 1+ Helmet Cells Not Reportable Rodriguez-[place] Bodies Not Reportable [place] Rings Not Reportable [place] Cells 1+ Bite Cells Not Reportable Crenated Cell Not Reportable Elliptocytes Few Acanthocytes (Spur) Not Reportable Rouleaux Not Reportable Hemoglobin C Crystals Not Reportable Schistocytes Not Reportable Malaria parasites Not Reportable [place]ro Bodies Not Reportable Hem Pathologist Commnt Sent to pathology Sodium 138 Potassium 3.9 Chloride 106.2 Carbon Dioxide 25 Anion Gap 11 BUN 5 L Creatinine 0.6 L Estimated GFR > 60 BUN/Creatinine Ratio 8 Glucose 93 Calcium 7.2 L Iron TIBC Ferritin Vitamin B12 Folate Miscellaneous Test Flexitest 1 08/19/19 08/19/19 08/19/19 13:40 13:40 13:40 WBC RBC Hgb Hct MCV MCH MCHC RDW Plt Count Lymph % (Auto) [place] % (Auto) Add Manual Diff Total Counted Seg Neutrophils % Seg Neuts % (Manual) Band Neutrophils % Lymphocytes % (Manual) Reactive Lymphs % (Man) Monocytes % (Manual) Eosinophils % (Manual) Basophils % (Manual) Metamyelocytes % Myelocytes % Promyelocytes % Blast Cells % Nucleated RBC % Seg Neutrophils # Man Band Neutrophils # Lymphocytes # (Manual) Abs React Lymphs (Man) Monocytes # (Manual) Eosinophils # (Manual) Basophils # (Manual) Metamyelocytes # Myelocytes # Promyelocytes # Blast Cells # Pathologist Review WBC Morphology Hypersegmented Neuts Hyposegmented Neuts Hypogranular Neuts Smudge Cells Toxic Granulation Toxic Vacuolation Dohle Bodies Pelger-Huet Anomaly Julia Rods Platelet Estimate Clumped Platelets Plt Clumps, EDTA Large Platelets Giant Platelets Platelet Satelliting Plt Morphology Comment RBC Morphology Dimorphic RBCs Polychromasia Hypochromasia Poikilocytosis Anisocytosis Microcytosis Macrocytosis Spherocytes Pappenheimer Bodies Sickle Cells Target Cells Tear Drop Cells Ovalocytes Helmet Cells Rodriguez-[place] Bodies [place] Rings [place] Cells Bite Cells Crenated Cell Elliptocytes Acanthocytes (Spur) Rouleaux Hemoglobin C Crystals Schistocytes Malaria parasites [place] Bodies Hem Pathologist Commnt Sodium Potassium Chloride Carbon Dioxide Anion Gap BUN Creatinine Estimated GFR BUN/Creatinine Ratio Glucose Calcium Iron 38 TIBC 316 Ferritin 137.9 Vitamin B12 540.1 Folate Miscellaneous Test 08/19/19 08/19/19 08/20/19 13:40 21:18 05:55 WBC 2.8 L 3.0 L RBC 4.96 4.39 Hgb 10.8 9.6 L Hct 33.9 29.9 L MCV 68 L 68 L MCH 22 L 22 L MCHC 32 32 RDW 23.0 H 22.5 H Plt Count 33 L Lymph % (Auto) Manager Books [place] % (Auto) Manager Books Add Manual Diff Complete Total Counted 100 Seg Neutrophils % Manager Books Seg Neuts % (Manual) 16.0 L Band Neutrophils % 0 Lymphocytes % (Manual) 70.0 H Reactive Lymphs % (Man) 6.0 Monocytes % (Manual) 5.0 Eosinophils % (Manual) 2.0 Basophils % (Manual) 1.0 Metamyelocytes % 0 Myelocytes % 0 Promyelocytes % 0 Blast Cells % 0 Nucleated RBC % Not Reportable Seg Neutrophils # Man 0.4 L Band Neutrophils # 0.0 Lymphocytes # (Manual) 2.0 Abs React Lymphs (Man) 0.2 Monocytes # (Manual) 0.1 Eosinophils # (Manual) 0.1 Basophils # (Manual) 0.0 Metamyelocytes # 0.0 Myelocytes # 0.0 Promyelocytes # 0.0 Blast Cells # 0.0 Pathologist Review WBC Morphology Not Reportable Hypersegmented Neuts Not Reportable Hyposegmented Neuts Not Reportable Hypogranular Neuts Not Reportable Smudge Cells Not Reportable Toxic Granulation Not Reportable Toxic Vacuolation Not Reportable Dohle Bodies Not Reportable Pelger-Huet Anomaly Not Reportable Julia Rods Not Reportable Platelet Estimate Consistent w auto Clumped Platelets Not Reportable Plt Clumps, EDTA Not Reportable Large Platelets Not Reportable Giant Platelets Not Reportable Platelet Satelliting Not Reportable Plt Morphology Comment Not Reportable RBC Morphology Not Reportable Dimorphic RBCs Not Reportable Polychromasia Not Reportable Hypochromasia 1+ Poikilocytosis Not Reportable Anisocytosis 1+ Microcytosis 1+ Macrocytosis Not Reportable Spherocytes Not Reportable Pappenheimer Bodies Not Reportable Sickle Cells Not Reportable Target Cells 1+ Tear Drop Cells Not Reportable Ovalocytes Not Reportable Helmet Cells Not Reportable Rodriguez-[place] Bodies Not Reportable [place] Rings Not Reportable Gilman Cells Not Reportable Bite Cells Not Reportable Crenated Cell Not Reportable Elliptocytes Not Reportable Acanthocytes (Spur) Not Reportable Rouleaux Not Reportable Hemoglobin C Crystals Not Reportable Schistocytes Not Reportable Malaria parasites Not Reportable [place] Bodies Not Reportable Hem Pathologist Commnt No Sodium Potassium Chloride Carbon Dioxide Anion Gap BUN Creatinine Estimated GFR BUN/Creatinine Ratio Glucose Calcium Iron TIBC Ferritin Vitamin B12 Folate > 20 Miscellaneous Test 08/20/19 05:55 WBC RBC Hgb Hct MCV MCH MCHC RDW Plt Count Lymph % (Auto) [place] % (Auto) Add Manual Diff Total Counted Seg Neutrophils % Seg Neuts % (Manual) Band Neutrophils % Lymphocytes % (Manual) Reactive Lymphs % (Man) Monocytes % (Manual) Eosinophils % (Manual) Basophils % (Manual) Metamyelocytes % Myelocytes % Promyelocytes % Blast Cells % Nucleated RBC % Seg Neutrophils # Man Band Neutrophils # Lymphocytes # (Manual) Abs React Lymphs (Man) Monocytes # (Manual) Eosinophils # (Manual) Basophils # (Manual) Metamyelocytes # Myelocytes # Promyelocytes # Blast Cells # Pathologist Review WBC Morphology Hypersegmented Neuts Hyposegmented Neuts Hypogranular Neuts Smudge Cells Toxic Granulation Toxic Vacuolation Dohle Bodies Pelger-Huet Anomaly Julia Rods Platelet Estimate Clumped Platelets Plt Clumps, EDTA Large Platelets Giant Platelets Platelet Satelliting Plt Morphology Comment RBC Morphology Dimorphic RBCs Polychromasia Hypochromasia Poikilocytosis Anisocytosis Microcytosis Macrocytosis Spherocytes Pappenheimer Bodies Sickle Cells Target Cells Tear Drop Cells Ovalocytes Helmet Cells Rodriguez-[place] Bodies [place] Rings Nicholas Cells Bite Cells Crenated Cell Elliptocytes Acanthocytes (Spur) Rouleaux Hemoglobin C Crystals Schistocytes Malaria parasites [place] Bodies Hem Pathologist Commnt Sodium 138 Potassium 3.9 Chloride 103.7 Carbon Dioxide 26 Anion Gap 12 BUN 4 L Creatinine 0.6 L Estimated GFR > 60 BUN/Creatinine Ratio 7 Glucose 99 Calcium 8.0 L Iron TIBC Ferritin Vitamin B12 Folate Miscellaneous Test Medications & Allergies - Medications Allergies/Adverse Reactions: Allergies No Known Allergies Allergy (Unverified 07/22/18 00:26) Home Medications: Home Medications Medication Instructions Recorded Confirmed Last Taken Type Acetaminophen [Acetaminophen TAB] 1 tab PO Q4H PRN #30 tablet 08/20/19 Unknown Rx Lisinopril/Hydrochlorothiazide 20 - 25 mg PO DAILY #30 08/20/19 08/19/19 Unknown Rx [Zestoretic 10-12.5 mg Tablet] Active Medications: Generic Name Dose Route Start Last Admin Trade Name Freq PRN Reason Stop Dose Admin Acetaminophen 650 mg 08/17/19 07:53 08/17/19 22:42 Tylenol PO 650 mg Q4H PRN Administration Pain MILD(1-3)/Fever >100.5/PECK Hydralazine HCl 10 mg 08/20/19 00:01 08/20/19 00:19 Apresoline IV 10 mg Q4H PRN Administration Blood Pressure Hydrochlorothiazide 25 mg 08/20/19 10:00 Hctz PO QDAY SAVITA Lisinopril 20 mg 08/20/19 10:00 Zestril PO DAILY SAVITA Ondansetron HCl 4 mg 08/17/19 07:53 Zofran IV Q8H PRN Nausea And Vomiting Sodium Chloride 10 ml 08/17/19 10:00 08/20/19 00:20 Sodium Chloride Flush Syringe 10 Ml IV 10 ml BID SAVITA Administration Sodium Chloride 10 ml 08/17/19 07:53 Sodium Chloride Flush Syringe 10 Ml IV PRN PRN LINE FLUSH
[2019-08-20] MEDS ORDERED: hydroCHLOROthiazide 25 MG TAB PO SCH (10:00)
[2019-08-20] MEDS ORDERED: LISINOPRIL 20 MG TAB PO SCH (10:00)
[2019-08-20 11:01] LABS: Platelet Count 47 K/mm3 (140-440)
--- NOTE | 2019-08-20 11:54 | Progress Note ---
Assessment and Plan Cultures: 08/17 stool culture - pending A/P: 48 yo F PMHx HTN, leukopenia admitted with diarrhea with leukopenia and thrombocytopenia 1. Sepsis - fever resolved, neutropenia better, platelets lower. Mild transaminitis. etiology ? from travelers diarrhea ? dengue fever/chikungunya/zika virus - reports multiple mosquitoes bites 2. Traveller's Diarrhea - ?Shigellosis/Campylobacter/ETEC Recs: - continue supportive therapy for now - follow up stool culture - follow platelets - f/u dengue fever/chikungunya/zika virus serology Will follow. Edenilson Orlando MD [facility] ([facility] M: [phone] O: [phone] F: [phone] Subjective Date of service: 08/20/19 Principal diagnosis: fever, diarrhea Objective - Constitutional Vitals: Vital Signs Temp Pulse Resp BP Pulse Ox 97.8 F 77 18 145/82 99 08/20/19 06:25 08/20/19 10:36 08/20/19 06:25 08/20/19 10:36 08/20/19 06:25 Temperature -Last 24 Hours Temperature 97.8 F Temperature 98.3 F Temperature 98.7 F - Labs CBC & Chem 7: 08/20/19 05:55 08/20/19 05:55 Labs: Abnormal lab results 08/19/19 08/19/19 08/20/19 Range/Units 06:07 21:18 05:55 WBC 3.1 L 2.8 L 3.0 L (4.5-11.0) K/mm3 Hgb 9.3 L 9.6 L (10.1-14.3) gm/dl Hct 28.8 L 29.9 L (30.3-42.9) % MCV 68 L 68 L 68 L (79-97) fl MCH 22 L 22 L 22 L (28-32) pg RDW 22.9 H 23.0 H 22.5 H (13.2-15.2) % Plt Count 31 L 33 L 47 L (140-440) K/mm3 Seg Neuts % (Manual) 10.0 L 16.0 L (40.0-70.0) % Lymphocytes % (Manual) 74.0 H 70.0 H (13.4-35.0) % Seg Neutrophils # Man 0.3 L 0.4 L (1.8-7.7) K/mm3 BUN (7-17) mg/dL Creatinine (0.7-1.2) mg/dL Calcium (8.4-10.2) mg/dL 08/20/19 Range/Units 05:55 WBC (4.5-11.0) K/mm3 Hgb (10.1-14.3) gm/dl Hct (30.3-42.9) % MCV (79-97) fl MCH (28-32) pg RDW (13.2-15.2) % Plt Count (140-440) K/mm3 Seg Neuts % (Manual) (40.0-70.0) % Lymphocytes % (Manual) (13.4-35.0) % Seg Neutrophils # Man (1.8-7.7) K/mm3 BUN 4 L (7-17) mg/dL Creatinine 0.6 L (0.7-1.2) mg/dL Calcium 8.0 L (8.4-10.2) mg/dL
[2019-08-20 12:40] VITALS: BP 145/95
--- NOTE | 2019-08-20 15:08 | Gastroenterology Consultation ---
History of Present Illness - Reason for Consult Consult date: 08/20/19 Microcytic anemia Requesting physician: ROEBRTO GARIBAY - History of Present Illness The patient is a 48 yo aaf who was admitted with sepsis (fever/pancytopenia) and symptoms of chills, diarrhea, abd pain, n/v and headaches. She has since improved since admission and has been tolerating po well. She was found to have microcytic anemia along with leukopenia and thrombocytopenia. She endorses a scant amount of hematochezia on wipes following bm's but otherwise denies overt gi bleeding. denies current abd pain, change in bowel habits, upper gi complaints or family h/o gi malignancies. Past History Past Medical History: hypertension. denies: COPD, diabetes, HIV/AIDS, hyperlipidemia Past Surgical History: denies: No surgical history Social history: lives with family, full code. denies: smoking, alcohol abuse, prescription drug abuse, IV drug use, AND/DNR-allow natural Family history: no significant family history Medications and Allergies Allergies Allergy/AdvReac Type Severity Reaction Status Date / Time No Known Allergies Allergy Unverified 07/22/18 00:26 Home Medications Medication Instructions Recorded Confirmed Last Taken Type Acetaminophen [Acetaminophen TAB] 1 tab PO Q4H PRN #30 tablet 08/20/19 Unknown Rx Lisinopril/Hydrochlorothiazide 20 - 25 mg PO DAILY #30 08/20/19 08/19/19 Unknown Rx [Zestoretic 10-12.5 mg Tablet] Active Meds: Active Medications Acetaminophen (Tylenol) 650 mg PO Q4H PRN PRN Reason: Pain MILD(1-3)/Fever >100.5/PECK Last Admin: 08/17/19 22:42 Dose: 650 mg Documented by: Hydralazine HCl (Apresoline) 10 mg IV Q4H PRN PRN Reason: Blood Pressure Last Admin: 08/20/19 00:19 Dose: 10 mg Documented by: Hydrochlorothiazide (Hctz) 25 mg PO QDAY [facility] Last Admin: 08/20/19 10:36 Dose: 25 mg Documented by: Lisinopril (Zestril) 20 mg PO DAILY [facility] Last Admin: 08/20/19 10:36 Dose: 20 mg Documented by: Ondansetron HCl (Zofran) 4 mg IV Q8H PRN PRN Reason: Nausea And Vomiting Sodium Chloride (Sodium Chloride Flush Syringe 10 Ml) 10 ml IV BID SAVITA Last Admin: 08/20/19 10:34 Dose: 10 ml Documented by: Sodium Chloride (Sodium Chloride Flush Syringe 10 Ml) 10 ml IV PRN PRN PRN Reason: LINE FLUSH Reviewed/updated patient's home and current medications Review of Systems - Review of Systems All systems: negative (per HPI) Exam - Constitutional Vital Signs: Temp Pulse Resp BP Pulse Ox 98.9 F 76 16 145/95 99 08/20/19 12:34 08/20/19 12:34 08/20/19 12:34 08/20/19 12:34 08/20/19 12:34 General appearance: no acute distress - EENT Eyes: PERRL, EOM intact ENT: clear oral mucosa - Respiratory Respiratory effort: normal Respiratory: bilateral: CTA - Cardiovascular Rhythm: regular Heart Sounds: Present: S1 & S2 - Gastrointestinal General gastrointestinal: Present: soft, non-tender, non-distended - Integumentary Integumentary: Present: clear, warm - Neurologic Neurological: alert and oriented x3 - Psychiatric Psychiatric: appropriate mood/affect - Labs CBC & Chem 7: 08/20/19 05:55 08/20/19 05:55 Lab Results: Laboratory Results - last 24 hr 08/17/19 08/19/19 08/19/19 10:13 06:07 13:40 WBC 3.1 L RBC 4.24 Hgb 9.3 L Hct 28.8 L MCV 68 L MCH 22 L MCHC 32 RDW 22.9 H Plt Count 31 L Lymph % (Auto) [place] % (Auto) Add Manual Diff Total Counted 100 Seg Neutrophils % Seg Neuts % (Manual) 10.0 L Band Neutrophils % 0 Lymphocytes % (Manual) 74.0 H Reactive Lymphs % (Man) 13.0 Monocytes % (Manual) 1.0 Eosinophils % (Manual) 2.0 Basophils % (Manual) 0 Metamyelocytes % 0 Myelocytes % 0 Promyelocytes % 0 Blast Cells % 0 Nucleated RBC % Seg Neutrophils # Man 0.3 L Band Neutrophils # 0.0 Lymphocytes # (Manual) 2.3 Abs React Lymphs (Man) 0.4 Monocytes # (Manual) 0.0 Eosinophils # (Manual) 0.1 Basophils # (Manual) 0.0 Metamyelocytes # 0.0 Myelocytes # 0.0 Promyelocytes # 0.0 Blast Cells # 0.0 Pathologist Review WBC Morphology Not Reportable Hypersegmented Neuts Not Reportable Hyposegmented Neuts Not Reportable Hypogranular Neuts Not Reportable Smudge Cells Not Reportable Toxic Granulation Not Reportable Toxic Vacuolation Not Reportable Dohle Bodies Not Reportable Pelger-Huet Anomaly Julia Rods Not Reportable Platelet Estimate Consistent w auto Clumped Platelets Not Reportable Plt Clumps, EDTA Not Reportable Large Platelets Not Reportable Giant Platelets Not Reportable Platelet Satelliting Not Reportable Plt Morphology Comment Not Reportable RBC Morphology Not Reportable Dimorphic RBCs Not Reportable Polychromasia Not Reportable Hypochromasia 2+ Poikilocytosis 1+ Anisocytosis Not Reportable Microcytosis 1+ Macrocytosis Not Reportable Spherocytes Not Reportable Pappenheimer Bodies Not Reportable Sickle Cells Not Reportable Target Cells Rare Tear Drop Cells Few Ovalocytes 1+ Helmet Cells Not Reportable Rodriguez-Pompeys Pillar Bodies Not Reportable [place] Rings Not Reportable Nicholas Cells 1+ Bite Cells Not Reportable Crenated Cell Not Reportable Elliptocytes Few Acanthocytes (Spur) Not Reportable Rouleaux Not Reportable Hemoglobin C Crystals Not Reportable Schistocytes Not Reportable Malaria parasites Not Reportable [place] Bodies Not Reportable Hem Pathologist Commnt Sent to pathology Sodium Potassium Chloride Carbon Dioxide Anion Gap BUN Creatinine Estimated GFR BUN/Creatinine Ratio Glucose Calcium Iron 38 TIBC 316 Ferritin Vitamin B12 Folate Miscellaneous Test Flexitest 1 08/19/19 08/19/19 08/19/19 13:40 13:40 13:40 WBC RBC Hgb Hct MCV MCH MCHC RDW Plt Count Lymph % (Auto) [place] % (Auto) Add Manual Diff Total Counted Seg Neutrophils % Seg Neuts % (Manual) Band Neutrophils % Lymphocytes % (Manual) Reactive Lymphs % (Man) Monocytes % (Manual) Eosinophils % (Manual) Basophils % (Manual) Metamyelocytes % Myelocytes % Promyelocytes % Blast Cells % Nucleated RBC % Seg Neutrophils # Man Band Neutrophils # Lymphocytes # (Manual) Abs React Lymphs (Man) Monocytes # (Manual) Eosinophils # (Manual) Basophils # (Manual) Metamyelocytes # Myelocytes # Promyelocytes # Blast Cells # Pathologist Review WBC Morphology Hypersegmented Neuts Hyposegmented Neuts Hypogranular Neuts Smudge Cells Toxic Granulation Toxic Vacuolation Dohle Bodies Pelger-Huet Anomaly Julia Rods Platelet Estimate Clumped Platelets Plt Clumps, EDTA Large Platelets Giant Platelets Platelet Satelliting Plt Morphology Comment RBC Morphology Dimorphic RBCs Polychromasia Hypochromasia Poikilocytosis Anisocytosis Microcytosis Macrocytosis Spherocytes Pappenheimer Bodies Sickle Cells Target Cells Tear Drop Cells Ovalocytes Helmet Cells Rodriguez-Pompeys Pillar Bodies [place] Rings [place] Cells Bite Cells Crenated Cell Elliptocytes Acanthocytes (Spur) Rouleaux Hemoglobin C Crystals Schistocytes Malaria parasites [place] Bodies Hem Pathologist Commnt Sodium Potassium Chloride Carbon Dioxide Anion Gap BUN Creatinine Estimated GFR BUN/Creatinine Ratio Glucose Calcium Iron TIBC Ferritin 137.9 Vitamin B12 540.1 Folate > 20 Miscellaneous Test 08/19/19 08/20/19 08/20/19 21:18 05:55 05:55 WBC 2.8 L 3.0 L RBC 4.96 4.39 Hgb 10.8 9.6 L Hct 33.9 29.9 L MCV 68 L 68 L MCH 22 L 22 L MCHC 32 32 RDW 23.0 H 22.5 H Plt Count 33 L 47 L Lymph % (Auto) Locker Room Clerk [place] % (Auto) Locker Room Clerk Add Manual Diff Complete Total Counted 100 Seg Neutrophils % Locker Room Clerk Seg Neuts % (Manual) 16.0 L Band Neutrophils % 0 Lymphocytes % (Manual) 70.0 H Reactive Lymphs % (Man) 6.0 Monocytes % (Manual) 5.0 Eosinophils % (Manual) 2.0 Basophils % (Manual) 1.0 Metamyelocytes % 0 Myelocytes % 0 Promyelocytes % 0 Blast Cells % 0 Nucleated RBC % Not Reportable Seg Neutrophils # Man 0.4 L Band Neutrophils # 0.0 Lymphocytes # (Manual) 2.0 Abs React Lymphs (Man) 0.2 Monocytes # (Manual) 0.1 Eosinophils # (Manual) 0.1 Basophils # (Manual) 0.0 Metamyelocytes # 0.0 Myelocytes # 0.0 Promyelocytes # 0.0 Blast Cells # 0.0 Pathologist Review WBC Morphology Not Reportable Hypersegmented Neuts Not Reportable Hyposegmented Neuts Not Reportable Hypogranular Neuts Not Reportable Smudge Cells Not Reportable Toxic Granulation Not Reportable Toxic Vacuolation Not Reportable Dohle Bodies Not Reportable Pelger-Huet Anomaly Not Reportable Julia Rods Not Reportable Platelet Estimate Consistent w auto Clumped Platelets Not Reportable Plt Clumps, EDTA Not Reportable Large Platelets Not Reportable Giant Platelets Not Reportable Platelet Satelliting Not Reportable Plt Morphology Comment Not Reportable RBC Morphology Not Reportable Dimorphic RBCs Not Reportable Polychromasia Not Reportable Hypochromasia 1+ Poikilocytosis Not Reportable Anisocytosis 1+ Microcytosis 1+ Macrocytosis Not Reportable Spherocytes Not Reportable Pappenheimer Bodies Not Reportable Sickle Cells Not Reportable Target Cells 1+ Tear Drop Cells Not Reportable Ovalocytes Not Reportable Helmet Cells Not Reportable Rodriguez-Pompeys Pillar Bodies Not Reportable [place] Rings Not Reportable [place] Cells Not Reportable Bite Cells Not Reportable Crenated Cell Not Reportable Elliptocytes Not Reportable Acanthocytes (Spur) Not Reportable Rouleaux Not Reportable Hemoglobin C Crystals Not Reportable Schistocytes Not Reportable Malaria parasites Not Reportable [place] Bodies Not Reportable Hem Pathologist Commnt No Sodium 138 Potassium 3.9 Chloride 103.7 Carbon Dioxide 26 Anion Gap 12 BUN 4 L Creatinine 0.6 L Estimated GFR > 60 BUN/Creatinine Ratio 7 Glucose 99 Calcium 8.0 L Iron TIBC Ferritin Vitamin B12 Folate Miscellaneous Test Assessment and Plan 1. Microcytic anemia - heme + stool; scant hematochezia with wipes. otherwise no overt gi bleeding. given acute illness, will hold off on work-up of microcytic anemia for now as no overt gi bleeding. pt instructed to f/u in GI clinic in 3-4 weeks. will repeat labs and if wbc and particularly platelets are improved, will plan for gi work-up (colonoscopy +/- EGD) as outpatient. pt expressed understanding and information for office provided for her to f/u within a couple weeks. 2. Pancytopenia 3. sepsis
--- NOTE | 2019-08-20 15:16 | Discharge Summary ---
Providers - Providers Date of Admission: 08/18/19 16:21 Date of discharge: 08/20/19 Attending physician: ROBERTO GARIBAY 08/17/19 07:53 Consult to Physician [CONS] Routine Comment: Consulting Provider: NITHIN GALVAN Physician Instructions: Reason For Exam: sepsis 08/18/19 15:52 Consult to Physician [CONS] Routine Comment: Consulting Provider: JAYA CHARLES Physician Instructions: Reason For Exam: thrombocytopenia 08/19/19 13:01 Consult to Physician [CONS] Routine Comment: Consulting Provider: JAMAAL BURNS Physician Instructions: Reason For Exam: positive FOBT, diarrhea Primary care physician: [facility], Hospitalization Condition: Stable Hospital course: Patient is a 48 yo woman with a history of hypertension and Leukopenia who presented to [facility] ED with diarrhea and fevers. She just returned from [place]. She is found to have rhabdomyolysis, fevers, hypotension. Discharge Diagnoses: Acute Diarrhea, suspected Shigella infection: ID consulted, input noted Sepsis with Infectious Diarrhea, poa: ID following, treat the above Acute Rhabdomyolysis, resolved: treated with IVF, HTN: continue to monitor Thrombocytopenia, worsening: consulted Heme/Onc, d/w Dr. Charles Positive fecal occult blood testing: consulted GI, d/w Dr. Burns, 1 month colonoscopy Hypokalemia: repleted, monitor BMP Pancytopenia: d/w Dr. Charles, ok to discharge DVT ppx: no a/c due to thrombocytopenia Disposition: DC-01 TO HOME OR SELFCARE Time spent for discharge: 38 minutes Core Measure Documentation - Palliative Care Palliative Care/ Comfort Measures: Not Applicable - Core Measures Any of the following diagnoses?: none - VTE Discharge Requirements Deep Vein Thrombosis/Pulmonary Embolism Present on Admission: No Has pt received <5 days of overlap therapy or INR<2.0: No Anticoagulant overlap therapy prescribed at discharge: No Contraindication No Overlap Therapy order at DC: Not Indicated Exam - Physical Exam Narrative exam: Gen: WDWN, NAD, Awake, Alert, Orientated HEENT: NCAT, EOMI, PERRL, OP Clear Neck: supple, no adenopathy, no thyromegaly, no JVD CVS/Heart: RRR, normal S1S2, pulses present bilaterally Chest/Lungs: CTA B, Symmetrical chest expansion, good air entry bilaterally GI/Abdomen: soft, NTND, good bowel sounds, no guarding or rebound /Bladder: no suprapubic tenderness, no CVA or paraspinal tenderness Extermity/Skin: no c/c/e, no obvious rash MSK: FROM x 4 Neuro: CN 2-12 grossly intact, no new focal deficits Psych: calm - Constitutional Vitals: Temp Pulse Resp BP Pulse Ox 98.9 F 76 16 145/95 99 08/20/19 12:34 08/20/19 12:34 08/20/19 12:34 08/20/19 12:34 08/20/19 12:34 Plan Activity: other (no strenous activity unless cleared by PCP) Diet: low salt Follow up with: PRIMARY CAREMD [Referring] - 3-5 Days JAYA CHARLES MD [Staff Physician] - 7 Days JAMAAL BURNS MD [Staff Physician] - 14 Days
--- NOTE | 2019-08-21 03:21 | Consultation ---
REFERRED BY: Dr. Doyle. REASON FOR CONSULTATION: Thrombocytopenia. HISTORY OF PRESENT ILLNESS: I saw the patient, a 48-year-old female, with past medical history of hypertension and leukopenia. The patient came to the hospital because of body ache, nausea, vomiting, diarrhea. The patient has recently been to [place] ____ diarrhea more than 5 times a day. As she did not improve, she came back to [place]. As per the note, she was found to have rhabdomyolysis and tachycardia. Platelet count was found to be low and I have been asked to evaluate the patient for this. No bleeding, no headache, no visual disturbances. No ear discharge. History of body ache, nausea, vomiting present. ____. No chills. PAST MEDICAL HISTORY: Hypertension. PAST SURGICAL HISTORY: None. SOCIAL HISTORY: Lives with family members. No history of tobacco or alcohol usage. FAMILY HISTORY: No significant family history. ALLERGIES: None. MEDICATIONS: Include Zofran. PHYSICAL EXAMINATION: VITAL SIGNS: Temperature 97.9, pulse 77, respirations 16, BP 100/58. HEENT: No pallor, no icterus. NECK: No neck lymph nodes. HEART: S1, S2. LUNGS: Clear to auscultation. ABDOMEN: Soft, no guarding. EXTREMITIES: No calf tenderness. NEUROLOGIC: Alert, awake, oriented. LABORATORY DATA: White cells 3.1, hemoglobin 9.3, MCV 68, platelet 31. At admission, platelet was 84 and then 65. Potassium 3.9, creatinine 0.6, calcium 7.2, bilirubin 0.3, LDH 556. CPK was 4500. Serum iron 38, ferritin 137. B12 of 540, folate more than 20. RADIOLOGY: CT chest was done, no PE. Leg Doppler was done, no DVT. ASSESSMENT AND PLAN: 1. Thrombocytopenia. This may be a reactive phenomenon, infection versus rhabdomyolysis may have a role. We will follow the trend. 2. Leukopenia. The patient has a history of leukopenia. ____ are low. We will follow reverse isolation. Details referring to his leukopenia will be looked into. 3. Anemia. MCV is low. This could be iron deficiency versus thalassemia. We will follow. 4. Elevated CPK. 5. Rhabdomyolysis. 6. Elevated LDH. 7. The patient is seen by ID team. Peripheral smear has been ordered. [facility]# [id number] BRYAN/JOHN
== END 2019-08-20 16:15 | disposition home or self-care (01) | DRG 975 ==
LOC: ED 03:47 → INTOOBSV 07:54 → 3A 07:54 → OBSVTOIN 08-18 16:21
PROVIDERS: ADMIT Internal Medicine; ATTEND Internal Medicine
DX: A41.9 Sepsis, unspecified organism (principal); M62.82 Rhabdomyolysis; B20 Human immunodeficiency virus [HIV] disease; A09 Infectious gastroenteritis and colitis, unspecified; I10 Essential (primary) hypertension; E87.6 Hypokalemia; Z66 Do not resuscitate; D72.819 Decreased white blood cell count, unspecified; R74.0 Nonspecific elevation of levels of transaminase and lactic acid dehydrogenase [LDH]
CPT/HCPCS: 36415; 71045; 71275; 80048; 80053; 81001; 81025; 82140; 82270; 82550; 82607; 82728; 82747; 82805; 83010; 83550; 83615; 83735; 83986; 85007; 85025; 85027; 85379; 85384; 85610; 85730; 87040; 87045; 87086; 87400; 87493; 88184; 88185; 90686; 93005; 93010; 93970; 96361; 96374; G0378; J0360; J7030; J7040; Q9967